=== PATIENT | female | born 1945 | race Caucasian/White ===

== ENCOUNTER 2019-09-13 11:33 | Inpatient (IN) | payer MEDICARE, OTHER ==
[2019-09-13 12:01] LABS: HEMATOCRIT 31.5 % (36.0-47.0); HEMOGLOBIN 10.4 g/dL (12.0-15.5); MEAN CORPUSCULAR HEMOGLOBIN 29.7 pg (27.0-33.4); MEAN CORPUSCULAR VOLUME 90 fl (80-97); PLATELET COUNT 441 10^3/uL (150-450); RED CELL DISTRIBUTION WIDTH 14.5 % (11.5-14.0)
[2019-09-13 12:06] LABS: WHITE BLOOD COUNT 46.5 10^3/uL (4.0-10.5)
[2019-09-13] MEDS ORDERED: ONDANSETRON HCL INJ/PF 4 MG/2 ML SDV IV ONE (12:06)
[2019-09-13] MEDS ORDERED: NORMAL SALINE 1000 ML 1,000 ML IV ONE ×2 (12:06→18:30)
[2019-09-13] MEDS ORDERED: NORMAL SALINE IV ONE (12:14)
[2019-09-13 12:15] LABS: ALBUMIN 2.9 g/dL (3.5-5.0); ALKALINE PHOSPHATASE 110 U/L (38-126); ANION GAP 15 (5-19); ASPARTATE AMINO TRANSFERASE 20 U/L (14-36); BILIRUBIN,DIRECT 0.2 mg/dL (0.0-0.4); BILIRUBIN,TOTAL 0.5 mg/dL (0.2-1.3); BLOOD UREA NITROGEN 22 mg/dL (7-20); CALCIUM 8.4 mg/dL (8.4-10.2); CARBON DIOXIDE 25 mmol/L (22-30); CHLORIDE 97 mmol/L (98-107); GLUCOSE 106 mg/dL (75-110); TOTAL PROTEIN 5.7 g/dL (6.3-8.2)
[2019-09-13 12:17] LABS: ABSOLUTE LYMPHOCYTES# (MANUAL) 0.9 10^3/uL (0.5-4.7); ABSOLUTE MONOCYTES # (MANUAL) 2.8 10^3/uL (0.1-1.4); BAND NEUTROPHILS % (MANUAL) 2 % (3-5); BASOPHILS % (MANUAL) 0 % (0-2); EOSINOPHILS % (MANUAL) 0 % (0-6); LYMPHOCYTES % (MANUAL) 2 % (13-45); MONOCYTES % (MANUAL) 6 % (3-13); SEGMENTED NEUTROPHILS % (MAN) 90 % (42-78); TOTAL CELLS COUNTED 100
[2019-09-13 12:18] LABS: TOXIC GRANULATION SLIGHT
[2019-09-13 12:19] LABS: PLATELET CLUMPS PRESENT; PLATELET COMMENT ADEQUATE; POLYCHROMASIA SLIGHT
[2019-09-13 12:21] LABS: POTASSIUM 2.7 mmol/L (3.6-5.0)
[2019-09-13 12:54] LABS: APPEARANCE,URINE SLIGHTLY-CLOUDY; BILIRUBIN,URINE NEGATIVE (NEGATIVE); COLOR,URINE AMBER; GLUCOSE, URINE NEGATIVE (NEGATIVE); KETONES,URINE NEGATIVE (NEGATIVE); LEUKOCYTE ESTERASE,URINE TRACE (NEGATIVE); NITRITE,URINE POSITIVE (NEGATIVE); PROTEIN,URINE 30 mg/dL (NEGATIVE); UROBILINOGEN,URINE NEGATIVE mg/dL (<2.0)
[2019-09-13 13:18] LABS: VENOUS BLOOD BASE EXCESS 0.4 mmol/L; VENOUS BLOOD HCO3 24.9 mmol/L (20-32); VENOUS BLOOD PCO2 39.6 mmHg (35-63); VENOUS BLOOD PH 7.42 (7.30-7.42)
--- NOTE | 2019-09-13 13:22 | RADIOLOGY REPORT (SQ) ---
"EXAM DESCRIPTION: CT ABD/PELVIS NO ORAL OR IV COMPLETED DATE/TIME: 09/13/2019 12:53 pm REASON FOR STUDY: abd pain/vomiting COMPARISON: None. TECHNIQUE: CT scan of the abdomen and pelvis performed without intravenous or oral contrast. Images reviewed with lung, soft tissue, and bone windows. Reconstructed coronal and sagittal MPR images revi ewed. All images stored on PACS. All CT scanners at this facility use dose modulation, iterative reconstruction, and/or weight based d osing when appropriate to reduce radiation dose to as low as reasonably achievable (ALARA). [facility]: Dose Right [facility]: CareDose [facility]: Dose Right [facility]: Teradose 4D [facility]: [employer] | [employer] RADIATION DOSE: CT Rad equipment meets quality standard of care and radiation dose reduction techniq ues were employed. CTDIvol: 5.6 mGy. DLP: 277 mGy-cm.mGy. LIMITATIONS: None. FINDINGS: LOWER CHEST: No significant findings. Benign calcified nodule of the anterior right middl e lobe, partially imaged. Small pericardial effusion. NON-CONTRASTED LIVER, SPLEEN, ADRENALS: Evaluation limited by lack of IV contrast. No identified sign ificant masses. PANCREAS: No masses. No peripancreatic inflammatory changes. GALLBLADDER: No identified stones by CT criteria. No inflammatory changes to suggest cholecystitis. RIGHT KIDNEY AND URETER: Status post right nephrectomy. . LEFT KIDNEY AND URETER: No suspicious masses. Assessment limited by lack of IV contrast. No signifi cant calcifications. No hydronephrosis or hydroureter. AORTA AND RETROPERITONEUM: No aneurysm. No retroperitoneal masses or adenopathy. Calcific atheroscle rosis. BOWEL AND PERITONEAL CAVITY: There is thickening of the cecum and proximal transverse colon (series 6 01, image 28, series 3, image 35) APPENDIX: Normal. PELVIS, BLADDER, AND ABDOMINAL WALL:No abnormal masses. No free fluid. Bladder normal. BONES: Status post right hip total arthroplasty. OTHER: No other significant finding. IMPRESSION: 1. There is thickening of the cecum and proximal transverse colon (series 601, image 28, series 3, image 35), consistent with nonspecific infectious, inflammatory, or ischemic colitis. 2. Status post right nephrectomy. COMMENT: Quality ID # [id number]: Final reports with documentation of one or more dose reduction techniques (e.g., Automated exposure control, adjustment of the mA and/or kV according to patient size, use of iterative reconstruction technique) TECHNICAL DOCUMENTATION: JOB ID: [id number] [employer]- All Rights Reserved Reading location - IP/workstation name: [email or web address]"
[2019-09-13] MEDS ORDERED: VANCOMYCIN HCL INJ 500 MG VIAL PO ONE (13:35)
--- NOTE | 2019-09-13 13:50 | ER Document Report ---
ED General - General Chief Complaint: Nausea/Vomiting Stated Complaint: NAUSEA Time Seen by Provider: 09/13/19 11:57 Mode of Arrival: Ambulatory Information source: Patient TRAVEL OUTSIDE OF THE [place] IN LAST 30 DAYS: No - HPI Notes: Patient presents with vomiting and diarrhea x4 to 5 days. Patient states that approximately 1 month ago she had a hip replacement done at an outside hospital. Since that time she has been in rehab until 3 days ago. She states that since she has been discharged from the rehab facility she has had vomiting and diarrhea. No blood in the vomit or diarrhea. Nothing seems to make the symptoms better or worse. No radiation of symptoms. Symptoms have been intermittent and moderate to severe. She is also had abdominal cramping that is been diffuse. No fevers or rashes. She states that she still does have some hip pain especially if she bears weight. - Related Data Allergies/Adverse Reactions: calcium [From DHEA] Allergy (Verified 09/13/19 11:58) rash/itching calcium carbonate [From DHEA] Allergy (Verified 09/13/19 11:58) rash/itching ketorolac [From Toradol] Allergy (Verified 09/13/19 12:01) rash/itching/sob/wheezing prasterone (DHEA) [From DHEA] Allergy (Verified 09/13/19 11:58) rash/itching sumatriptan [From Imitrex] Allergy (Verified 09/13/19 11:58) Chest pain hydroxyzine [From Vistaril] Adverse Reaction (Verified 09/13/19 12:01) nervous oxytocin Adverse Reaction (Verified 09/13/19 11:58) psychological reaction prednisone Adverse Reaction (Verified 09/13/19 12:01) psychological reaction prochlorperazine [From Compazine] Adverse Reaction (Verified 09/13/19 11:58) nervous Home Medications: see list Past Medical History - General Information source: Patient, Relative - Social History Smoking Status: Never Smoker Frequency of alcohol use: None Drug Abuse: None Family History: Reviewed & Not Pertinent Patient has suicidal ideation: No Patient has homicidal ideation: No - Past Medical History Cardiac Medical History: Reports: Hx Hypertension Neurological Medical History: Reports: Hx Migraine GI Medical History: Reports: Hx Gastroesophageal Reflux Disease Past Surgical History: Reports: Hx Cholecystectomy, Hx Hysterectomy - partial, Hx Kidney (Renal Surgery) - R kidney removal 07/2017, Hx Orthopedic Surgery - R hip replacement 08/15/19 Review of Systems - Review of Systems Constitutional: Malaise, Weakness Cardiovascular: denies: Chest pain, Palpitations Respiratory: denies: Cough, Short of breath Gastrointestinal: Abdominal pain, Diarrhea, Vomiting -: Yes All other systems reviewed and negative Physical Exam - Vital signs Vitals: Temp Resp Pulse Ox 98.1 F 17 95 09/13/19 11:35 09/13/19 11:35 09/13/19 11:35 Interpretation: Normal - General General appearance: Alert In distress: None - HEENT Head: Normocephalic, Atraumatic Eyes: Normal Pupils: PERRL - Respiratory Respiratory status: No respiratory distress Chest status: Nontender Breath sounds: Normal Chest palpation: Normal - Cardiovascular Rhythm: Regular Heart sounds: Normal auscultation Murmur: No - Abdominal Inspection: Normal Distension: No distension Bowel sounds: Hyperactive Tenderness: Tender - Mild diffuse tenderness to palpation Organomegaly: No organomegaly - Back Back: Normal, Nontender - Extremities General upper extremity: Normal inspection, Nontender, Normal color, Normal ROM, Normal temperature General lower extremity: Nontender, Normal color, Normal temperature, Other - The wound site of the right hip surgery appears unremarkable. The wound appears to be healing normally. There is no induration or erythema. There is no discharge or tenderness to palpation of the site.. No: Chris's sign - Neurological Neuro grossly intact: Yes Cognition: Normal Orientation: AAOx4 [place] Coma Scale Eye Opening: Spontaneous [place] Coma Scale Verbal: Oriented [place] Coma Scale Motor: Obeys Commands [place]ish Coma Scale Total: 15 Speech: Normal Motor strength normal: LUE, RUE, LLE, RLE Sensory: Normal - Psychological Associated symptoms: Normal affect, Normal mood - Skin Skin Temperature: Warm Skin Moisture: Dry Skin Color: Normal Course - Re-evaluation Re-evalutation: 09/13/19 13:49 Patient presents with abdominal pain vomiting diarrhea. She has a white count of 42,000. She was recently hospitalized. CT scan shows colitis. C. difficile at this time is pending but the work-up seems very consistent with C. difficile infection. She also appears dehydrated and hypokalemic. Her potassium will be replaced. She will be given IV fluids. She will be given oral vancomycin. - Vital Signs Vital signs: Temp Pulse Resp BP Pulse Ox 98.1 F 13 92/53 L 99 09/13/19 11:45 09/13/19 13:01 09/13/19 13:01 09/13/19 13:01 - Laboratory Result Diagrams: 09/13/19 11:40 09/13/19 11:40 Laboratory results interpreted by me: 09/13/19 09/13/19 09/13/19 11:40 11:40 12:32 WBC 46.5 H* RBC 3.50 L Hgb 10.4 L Hct 31.5 L RDW 14.5 H Seg Neuts % (Manual) 90 H Band Neutrophils % 2 L Lymphocytes % (Manual) 2 L Abs Neuts (Manual) 42.8 H Abs Monocytes (Manual) 2.8 H Sodium 136.5 L Potassium 2.7 L* Chloride 97 L BUN 22 H Est GFR ( Amer) 59 L Est GFR (MDRD) Non-Af 49 L Total Protein 5.7 L Albumin 2.9 L Lipase < 10.0 L Urine Protein 30 H Urine Blood SMALL H Urine Nitrite POSITIVE H Ur Leukocyte Esterase TRACE H - Diagnostic Test Radiology reviewed: Image reviewed, Reports reviewed - EKG Interpretation by Me EKG shows normal: Sinus rhythm Rate: Normal - 79 Rhythm: NSR [place]/QRS: Left axis deviation Discharge - Discharge Clinical Impression: C. difficile colitis, Hypokalemia, Dehydration Condition: Serious Disposition: ADMITTED INPATIENT Admitting Provider: Samra (Hospitalist) - [facility] Unit Admitted: [facility]
[2019-09-13] MEDS ORDERED: ONDANSETRON HCL INJ/PF 4 MG/2 ML SDV IV PRN (14:01)
[2019-09-13] MEDS: POTASSI CL 20 MEQ/50 ML RIDER 20 MEQ/50 ML RTUPB IV SCH ×3 (14:09→19:08)
[2019-09-13] MEDS ORDERED: METRONIDAZOLE 500 MG TABLET PO SCH (14:15)
--- NOTE | 2019-09-13 14:19 | PDOC H&P ---
History of Present Illness Admission Date/PCP: 09/13/2019 [place]-town primary care Patient complains of: Nausea vomiting abdominal pain diarrhea History of Present Illness: ALEXANDRIA DOWELL is a 74 year old female who approximately a month ago had a hip replacement. Patient was released from rehab last week and about 3 days ago developed severe nausea vomiting and diarrhea. Patient states no blood in the vomit or diarrhea nothing has made the symptoms better or worse and there is no other symptomology. CAT scan showed colitis she has a white count of 46,000. We are awaiting C. difficile toxin. Patient continues have right hip pain with weightbearing. No treatment prior arrival no aggravating factors Past Medical History Cardiac Medical History: Reports: Hypertension Neurological Medical History: Reports: Migraine GI Medical History: Reports: Gastroesophageal Reflux Disease Past Surgical History Past Surgical History: Reports: Cholecystectomy, Hysterectomy - partial, Orthopedic Surgery - R hip replacement 08/15/19 Social History Information Source: Patient Lives with: Family Smoking Status: Never Smoker Electronic Cigarette use?: No Frequency of Alcohol Use: None Hx Recreational Drug Use: No Drugs: None Hx Prescription Drug Abuse: No - Advance Directive Resuscitation Status: Full Code Family History Family History: CAD, Malignancy Parental Family History Reviewed: Yes Children Family History Reviewed: Yes Sibling(s) Family History Reviewed.: Yes Medication/Allergy Allergies/Adverse Reactions: calcium [From DHEA] Allergy (Verified 09/13/19 11:58) rash/itching calcium carbonate [From DHEA] Allergy (Verified 09/13/19 11:58) rash/itching ketorolac [From Toradol] Allergy (Verified 09/13/19 12:01) rash/itching/sob/wheezing prasterone (DHEA) [From DHEA] Allergy (Verified 09/13/19 11:58) rash/itching sumatriptan [From Imitrex] Allergy (Verified 09/13/19 11:58) Chest pain hydroxyzine [From Vistaril] Adverse Reaction (Verified 09/13/19 12:01) nervous oxytocin Adverse Reaction (Verified 09/13/19 11:58) psychological reaction prednisone Adverse Reaction (Verified 09/13/19 12:01) psychological reaction prochlorperazine [From Compazine] Adverse Reaction (Verified 09/13/19 11:58) nervous Review of Systems Constitutional: ABSENT: chills, fever(s), headache(s), weight gain, weight loss Eyes: ABSENT: visual disturbances Ears: ABSENT: hearing changes Cardiovascular: ABSENT: chest pain, dyspnea on exertion, edema, orthropnea, palpitations Respiratory: ABSENT: cough, hemoptysis Gastrointestinal: PRESENT: abdominal pain, diarrhea, nausea, vomiting. ABSENT: constipation, hematemesis, hematochezia Genitourinary: ABSENT: dysuria, hematuria Musculoskeletal: ABSENT: joint swelling Integumentary: ABSENT: rash, wounds Neurological: ABSENT: abnormal gait, abnormal speech, confusion, dizziness, focal weakness, syncope Psychiatric: ABSENT: anxiety, depression, homidical ideation, suicidal ideation Endocrine: ABSENT: cold intolerance, heat intolerance, polydipsia, polyuria Hematologic/Lymphatic: ABSENT: easy bleeding, easy bruising Physical Exam Vital Signs: Temp Pulse Resp BP Pulse Ox 98.1 F 13 92/53 L 99 09/13/19 11:45 09/13/19 13:01 09/13/19 13:01 09/13/19 13:01 Intake & Output 09/12/19 09/13/19 09/14/19 06:59 06:59 06:59 Intake Total 500 Balance 500 Weight 60.3 kg General appearance: PRESENT: no acute distress, well-developed, well-nourished Head exam: PRESENT: atraumatic, normocephalic Eye exam: PRESENT: conjunctiva pink, EOMI, PERRLA. ABSENT: scleral icterus Ear exam: PRESENT: normal external ear exam Mouth exam: PRESENT: moist, tongue midline Neck exam: ABSENT: carotid bruit, JVD, lymphadenopathy, thyromegaly Respiratory exam: PRESENT: clear to auscultation parul. ABSENT: rales, rhonchi, wheezes Cardiovascular exam: PRESENT: RRR. ABSENT: diastolic murmur, rubs, systolic murmur Pulses: PRESENT: normal dorsalis pedis pul Vascular exam: PRESENT: normal capillary refill GI/Abdominal exam: PRESENT: hyperactive bowel sounds, soft, tenderness. ABSENT: distended, guarding, mass, organolmegaly, rebound Rectal exam: PRESENT: deferred Extremities exam: PRESENT: full ROM. ABSENT: calf tenderness, clubbing, pedal edema Musculoskeletal exam: PRESENT: other - Surgical scar right hip Neurological exam: PRESENT: alert, awake, oriented to person, oriented to place, oriented to time, oriented to situation, CN II-XII grossly intact. ABSENT: motor sensory deficit Psychiatric exam: PRESENT: appropriate affect, normal mood. ABSENT: homicidal ideation, suicidal ideation Skin exam: PRESENT: dry, intact, warm. ABSENT: cyanosis, rash Results Laboratory Results: 09/13/19 11:40 09/13/19 11:40 09/13/19 09/13/19 09/13/19 11:40 11:40 12:32 WBC 46.5 H* RBC 3.50 L Hgb 10.4 L Hct 31.5 L MCV 90 MCH 29.7 MCHC 33.0 RDW 14.5 H Plt Count 441 Seg Neutrophils % Not Reportable VBG pH VBG pCO2 VBG HCO3 VBG Base Excess Sodium 136.5 L Potassium 2.7 L* Chloride 97 L Carbon Dioxide 25 Anion Gap 15 BUN 22 H Creatinine 1.09 Est GFR ( Amer) 59 L Glucose 106 Calcium 8.4 Total Bilirubin 0.5 AST 20 Alkaline Phosphatase 110 Total Protein 5.7 L Albumin 2.9 L Lipase < 10.0 L Urine Color CARLOS Urine Appearance SLIGHTLY-CLOUDY Urine pH 5.0 Ur Specific [place] 1.020 Urine Protein 30 H Urine Glucose (UA) NEGATIVE Urine Ketones NEGATIVE Urine Blood SMALL H Urine Nitrite POSITIVE H Ur Leukocyte Esterase TRACE H Urine WBC (Auto) 5 Urine RBC (Auto) 1 09/13/19 13:08 WBC RBC Hgb Hct MCV MCH MCHC RDW Plt Count Seg Neutrophils % VBG pH 7.42 VBG pCO2 39.6 VBG HCO3 24.9 VBG Base Excess 0.4 Sodium Potassium Chloride Carbon Dioxide Anion Gap BUN Creatinine Est GFR ( Amer) Glucose Calcium Total Bilirubin AST Alkaline Phosphatase Total Protein Albumin Lipase Urine Color Urine Appearance Urine pH Ur Specific [place] Urine Protein Urine Glucose (UA) Urine Ketones Urine Blood Urine Nitrite Ur Leukocyte Esterase Urine WBC (Auto) Urine RBC (Auto) 09/13/19 11:40 Troponin I < 0.012 Impressions: Abdomen/Pelvis CT 09/13/19 12:05 IMPRESSION: 1. There is thickening of the cecum and proximal transverse colon (series 601, image 28, series 3, image 35), consistent with nonspecific infectious, inflammatory, or ischemic colitis. 2. Status post right nephrectomy. Assessment and Plan - Diagnosis (1) C. difficile colitis Is this a current diagnosis for this admission?: Yes Plan: 09/13/2019-await C. difficile toxin. Will place patient on Flagyl 500 mg every 6 hours and vancomycin 500 mg p.o. every 6 hours. Will treat pain with Dilaudid 0.5 mg IV every 3 hours. Will give patient a clear liquid diet. Will follow make change plan of care as appropriate (2) Hypokalemia Is this a current diagnosis for this admission?: Yes Plan: 09/13/2019-patient receiving potassium riders total 60 mEq IV will repeat BMP in a.m. (3) Dehydration Is this a current diagnosis for this admission?: Yes Plan: 09/13/2019-normal saline x2 L in the ER. Will continue normal saline 125 mL an hour. Repeat BMP in a.m. (4) Pain Is this a current diagnosis for this admission?: Yes Plan: 09/13/2019-Dilaudid 0.5 mill grams IV every 3 hours PRN (5) Nausea & vomiting Is this a current diagnosis for this admission?: Yes Plan: 09/13/2019-alternating Zofran and Phenergan IV. - Time Time Spent with patient: 35 or more minutes - Inpatient Certification Based on my medical assessment, after consideration of the patient's comorbidities, presenting symptoms, or acuity I expect that the services needed warrant INPATIENT care.: Yes I certify that my determination is in accordance with my understanding of Medicare's requirements for reasonable and necessary INPATIENT services [42 CFR 412.3e].: Yes Medical Necessity: Need For IV Fluids, Need for Pain Control, Need for IV Anti biotics
[2019-09-13] MEDS ORDERED: VANCOMYCIN HCL INJ 500 MG VIAL PO SCH (15:30)
[2019-09-13] MEDS: NORMAL SALINE 1000 ML 1,000 ML IV PRN (15:39)
[2019-09-13] MEDS: HYDROMORPHONE HCL INJ/PF 2 MG/ML AMPULE IV PRN (16:09)
[2019-09-13] MEDS: PROMETHAZINE HCL INJ 25 MG/1 ML VIAL IV PRN ×2 (16:11→21:16)
[2019-09-13] MEDS: CEFTRIAXONE 1 GM/D5W RTU 1 GM/50 ML RTUPB IV SCH (16:45)
--- NOTE | 2019-09-13 17:48 | EKG REPORT ---
SEVERITY:- ABNORMAL ECG - SINUS RHYTHM LEFT VENTRICULAR HYPERTROPHY BORDERLINE T ABNORMALITIES, INFERIOR LEADS : Confirmed by: Sunny Russell MD 13-Sep-2019 17:48:12
[2019-09-13] MEDS: METRONIDAZOLE 500 MG/NS RTU 500 MG/100 ML RTUPB IV SCH (18:15)
[2019-09-13] MEDS: VANCOMYCIN HCL INJ 500 MG VIAL PO SCH (18:15)
[2019-09-13] MEDS: HEPARIN SOD (PORCINE) 5,000 UNIT/ML 1 ML VIAL SUBCUT SCH (22:07)
[2019-09-13 22:30] LABS: ANION GAP 14 (5-19); BLOOD UREA NITROGEN 18 mg/dL (7-20); CALCIUM 7.5 mg/dL (8.4-10.2); CARBON DIOXIDE 19 mmol/L (22-30); CHLORIDE 107 mmol/L (98-107); GLUCOSE 86 mg/dL (75-110); POTASSIUM 3.1 mmol/L (3.6-5.0)
[2019-09-13] MEDS ORDERED: ACETAMINOPHEN 325 MG TABLET PO PRN (23:37)
[2019-09-13] MEDS ORDERED: METOCLOPRAMIDE HCL INJ/PF 10 MG/2 ML SDV IV ONE (23:45)
[2019-09-14] MEDS: ACETAMINOPHEN 1,000 MG/100 ML RTUPB IV PRN ×3 (00:01→23:55)
[2019-09-14] MEDS: METRONIDAZOLE 500 MG/NS RTU 500 MG/100 ML RTUPB IV SCH ×5 (00:02→23:17)
[2019-09-14] MEDS: ONDANSETRON HCL INJ/PF 4 MG/2 ML SDV IV PRN ×2 (00:02→13:11)
[2019-09-14] MEDS: VANCOMYCIN HCL INJ 500 MG VIAL PO SCH ×5 (00:02→23:15)
[2019-09-14] MEDS: NORMAL SALINE 1000 ML 1,000 ML IV PRN ×3 (00:03→17:27)
[2019-09-14] MEDS: HEPARIN SOD (PORCINE) 5,000 UNIT/ML 1 ML VIAL SUBCUT SCH ×3 (06:08→23:15)
[2019-09-14] MEDS: PROMETHAZINE HCL INJ 25 MG/1 ML VIAL IV PRN ×3 (06:12→23:15)
[2019-09-14] MEDS: METOCLOPRAMIDE HCL INJ/PF 10 MG/2 ML SDV IV SCH ×3 (06:12→23:15)
[2019-09-14 06:30] LABS: HEMATOCRIT 25.9 % (36.0-47.0); HEMOGLOBIN 8.7 g/dL (12.0-15.5); MEAN CORPUSCULAR HEMOGLOBIN 30.1 pg (27.0-33.4); MEAN CORPUSCULAR HGB CONC 33.6 g/dL (32.0-36.0); MEAN CORPUSCULAR VOLUME 89 fl (80-97); PLATELET COUNT 392 10^3/uL (150-450); RED CELL DISTRIBUTION WIDTH 14.6 % (11.5-14.0)
[2019-09-14 06:52] LABS: WHITE BLOOD COUNT 31.4 10^3/uL (4.0-10.5)
[2019-09-14 07:32] LABS: C DIFFICILE GDH NEGATIVE (NEGATIVE)
--- NOTE | 2019-09-14 08:47 | PDOC PROGRESS REPORT ---
Subjective Progress Note for:: 09/14/19 Subjective:: 09/14/2019-no complaints Reason For Visit: C. DIFFICILE COLITIS,UTI,HYPOKALEMIA Physical Exam Vital Signs: Temp Pulse Resp BP Pulse Ox 98.3 F 74 20 91/43 L 95 09/14/19 03:47 09/14/19 07:00 09/14/19 03:47 09/14/19 03:47 09/14/19 03:47 Intake & Output 09/13/19 09/14/19 09/15/19 06:59 06:59 06:59 Intake Total 4000 Balance 4000 Weight 57.7 kg General appearance: PRESENT: no acute distress, well-developed, well-nourished Head exam: PRESENT: atraumatic, normocephalic Eye exam: PRESENT: conjunctiva pink, EOMI, PERRLA. ABSENT: scleral icterus Ear exam: PRESENT: normal external ear exam Mouth exam: PRESENT: moist, tongue midline Neck exam: ABSENT: carotid bruit, JVD, lymphadenopathy, thyromegaly Respiratory exam: PRESENT: clear to auscultation parul. ABSENT: rales, rhonchi, wheezes Cardiovascular exam: PRESENT: RRR. ABSENT: diastolic murmur, rubs, systolic murmur Pulses: PRESENT: +1 pedal pulses bilateral Vascular exam: PRESENT: normal capillary refill GI/Abdominal exam: PRESENT: hyperactive bowel sounds, soft, tenderness. ABSENT: distended, guarding, mass, organolmegaly, rebound Rectal exam: PRESENT: deferred Extremities exam: PRESENT: full ROM. ABSENT: calf tenderness, clubbing, pedal edema Neurological exam: PRESENT: alert, awake, oriented to person, oriented to place, oriented to time, oriented to situation, CN II-XII grossly intact. ABSENT: motor sensory deficit Psychiatric exam: PRESENT: appropriate affect, normal mood. ABSENT: homicidal ideation, suicidal ideation Skin exam: PRESENT: dry, intact, warm. ABSENT: cyanosis, rash Results Laboratory Results: 09/14/19 05:45 09/13/19 22:03 09/13/19 09/13/19 09/13/19 11:40 11:40 12:32 WBC 46.5 H* RBC 3.50 L Hgb 10.4 L Hct 31.5 L MCV 90 MCH 29.7 MCHC 33.0 RDW 14.5 H Plt Count 441 Seg Neutrophils % Not Reportable VBG pH VBG pCO2 VBG HCO3 VBG Base Excess Sodium 136.5 L Potassium 2.7 L* Chloride 97 L Carbon Dioxide 25 Anion Gap 15 BUN 22 H Creatinine 1.09 Est GFR ( Amer) 59 L Glucose 106 Calcium 8.4 Magnesium Total Bilirubin 0.5 AST 20 Alkaline Phosphatase 110 Total Protein 5.7 L Albumin 2.9 L Lipase < 10.0 L Urine Color CARLOS Urine Appearance SLIGHTLY-CLOUDY Urine pH 5.0 Ur Specific [place] 1.020 Urine Protein 30 H Urine Glucose (UA) NEGATIVE Urine Ketones NEGATIVE Urine Blood SMALL H Urine Nitrite POSITIVE H Ur Leukocyte Esterase TRACE H Urine WBC (Auto) 5 Urine RBC (Auto) 1 Stl C.difficile Tox PCR 09/13/19 09/13/19 09/13/19 13:08 19:55 22:03 WBC RBC Hgb Hct MCV MCH MCHC RDW Plt Count Seg Neutrophils % VBG pH 7.42 VBG pCO2 39.6 VBG HCO3 24.9 VBG Base Excess 0.4 Sodium 139.7 Potassium 3.1 L Chloride 107 Carbon Dioxide 19 L Anion Gap 14 BUN 18 Creatinine 0.95 Est GFR ( Amer) > 60 Glucose 86 Calcium 7.5 L Magnesium Total Bilirubin AST Alkaline Phosphatase Total Protein Albumin Lipase Urine Color Urine Appearance Urine pH Ur Specific [place] Urine Protein Urine Glucose (UA) Urine Ketones Urine Blood Urine Nitrite Ur Leukocyte Esterase Urine WBC (Auto) Urine RBC (Auto) Stl C.difficile Tox PCR POSITIVE 09/13/19 09/14/19 22:03 05:45 WBC 31.4 H* RBC 2.90 L Hgb 8.7 L Hct 25.9 L MCV 89 MCH 30.1 MCHC 33.6 RDW 14.6 H Plt Count 392 Seg Neutrophils % VBG pH VBG pCO2 VBG HCO3 VBG Base Excess Sodium Potassium Chloride Carbon Dioxide Anion Gap BUN Creatinine Est GFR ( Amer) Glucose Calcium Magnesium 1.4 L Total Bilirubin AST Alkaline Phosphatase Total Protein Albumin Lipase Urine Color Urine Appearance Urine pH Ur Specific [place] Urine Protein Urine Glucose (UA) Urine Ketones Urine Blood Urine Nitrite Ur Leukocyte Esterase Urine WBC (Auto) Urine RBC (Auto) Stl C.difficile Tox PCR 09/13/19 11:40 Troponin I < 0.012 Impressions: Abdomen/Pelvis CT 09/13/19 12:05 IMPRESSION: 1. There is thickening of the cecum and proximal transverse colon (series 601, image 28, series 3, image 35), consistent with nonspecific infectious, inflammatory, or ischemic colitis. 2. Status post right nephrectomy. Assessment and Plan - Diagnosis (1) C. difficile colitis Is this a current diagnosis for this admission?: Yes Plan: 09/13/2019-await C. difficile toxin. Will place patient on Flagyl 500 mg every 6 hours and vancomycin 500 mg p.o. every 6 hours. Will treat pain with Dilaudid 0.5 mg IV every 3 hours. Will give patient a clear liquid diet. Will follow make change plan of care as appropriate 09/14/2019-C. difficile toxin positive. Patient continued on Flagyl 500 mg IV every 6 hours and vancomycin 500 mg p.o. every 6 hours. Patient showing improvement at this time white count down to 31,000. We will continue current therapy. (2) Hypokalemia Is this a current diagnosis for this admission?: Yes Plan: 09/13/2019-patient receiving potassium riders total 60 mEq IV will repeat BMP in a.m. 09/14/2019-potassium 3.1 this morning. We will give potassium chloride riders times 4 repeat BMP in a.m. (3) Dehydration Is this a current diagnosis for this admission?: Yes Plan: 09/13/2019-normal saline x2 L in the ER. Will continue normal saline 125 mL an hour. Repeat BMP in a.m. 09/14/2019-continue hydration as patient is not taking oral at this time very well. (4) Pain Is this a current diagnosis for this admission?: Yes Plan: 09/13/2019-Dilaudid 0.5 mill grams IV every 3 hours PRN [id number] continue current therapy (5) Nausea & vomiting Is this a current diagnosis for this admission?: Yes Plan: 09/13/2019-alternating Zofran and Phenergan IV. 09/14/2019-improved continue as needed Zofran and Phenergan (6) Hypomagnesemia Is this a current diagnosis for this admission?: Yes Plan: 09/14/2019-magnesium 1.4. Give 2 g IV mag at this time repeat magnesium level in a.m. - Time Time Spent with patient: 15-24 minutes - Inpatient Certification Based on my medical assessment, after consideration of the patient's bryan rbidities, presenting symptoms, or acuity I expect that the services needed warrant INPATIENT care.: Yes I certify that my determination is in accordance with my understanding of Medicare's requirements for reasonable and necessary INPATIENT services [42 CFR 412.3e].: Yes Medical Necessity: Need For IV Fluids, Need for Pain Control, Need for IV Antibiotics
[2019-09-14] MEDS: MAGNESIUM SULFATE/D5W 1 GM/100 ML RTUPB IV SCH ×2 (09:03→10:32)
[2019-09-14] MEDS: POTASSI CL 20 MEQ/50 ML RIDER 20 MEQ/50 ML RTUPB IV SCH ×2 (09:15→11:37)
[2019-09-14] MEDS: VENLAFAXINE HCL 75 MG CAP.SR.24H PO SCH (11:29)
[2019-09-14] MEDS: CEFTRIAXONE 1 GM/D5W RTU 1 GM/50 ML RTUPB IV SCH (11:30)
[2019-09-14 13:18] LABS: PATH REVIEW PATHOLOGIST REVIEWED
[2019-09-14 15:50] LABS: ANION GAP 12 (5-19); BLOOD UREA NITROGEN 13 mg/dL (7-20); CALCIUM 7.6 mg/dL (8.4-10.2); CARBON DIOXIDE 18 mmol/L (22-30); CHLORIDE 109 mmol/L (98-107); GLUCOSE 97 mg/dL (75-110); POTASSIUM 3.1 mmol/L (3.6-5.0)
[2019-09-14] MEDS: ATORVASTATIN CALCIUM 40 MG TABLET PO SCH (23:14)
[2019-09-15] MEDS: NORMAL SALINE 1000 ML 1,000 ML IV PRN ×2 (05:15→18:11)
[2019-09-15] MEDS: VANCOMYCIN HCL INJ 500 MG VIAL PO SCH ×4 (05:15→23:27)
[2019-09-15] MEDS: METOCLOPRAMIDE HCL INJ/PF 10 MG/2 ML SDV IV SCH ×3 (05:15→22:41)
[2019-09-15] MEDS: LEVOTHYROXINE SODIUM 0.05 MG TABLET PO SCH (05:15)
[2019-09-15] MEDS: HEPARIN SOD (PORCINE) 5,000 UNIT/ML 1 ML VIAL SUBCUT SCH ×3 (05:16→22:40)
[2019-09-15] MEDS: METRONIDAZOLE 500 MG/NS RTU 500 MG/100 ML RTUPB IV SCH ×4 (05:16→23:27)
[2019-09-15 06:06] LABS: HEMATOCRIT 23.5 % (36.0-47.0); MEAN CORPUSCULAR HEMOGLOBIN 29.4 pg (27.0-33.4); MEAN CORPUSCULAR HGB CONC 33.2 g/dL (32.0-36.0); MEAN CORPUSCULAR VOLUME 89 fl (80-97); PLATELET COUNT 382 10^3/uL (150-450); RED BLOOD COUNT 2.65 10^6/uL (3.72-5.28); RED CELL DISTRIBUTION WIDTH 14.7 % (11.5-14.0); WHITE BLOOD COUNT 18.7 10^3/uL (4.0-10.5)
[2019-09-15 06:07] LABS: HEMOGLOBIN 7.8 g/dL (12.0-15.5)
[2019-09-15] MEDS: PROMETHAZINE HCL INJ 25 MG/1 ML VIAL IV PRN ×3 (06:55→20:22)
[2019-09-15 08:46] LABS: ANION GAP 7 (5-19); BLOOD UREA NITROGEN 9 mg/dL (7-20); CALCIUM 7.6 mg/dL (8.4-10.2); CARBON DIOXIDE 18 mmol/L (22-30); CHLORIDE 118 mmol/L (98-107); GLUCOSE 88 mg/dL (75-110)
[2019-09-15 08:59] LABS: POTASSIUM 2.9 mmol/L (3.6-5.0)
[2019-09-15] MEDS ORDERED: VANCOMYCIN HCL 0 MG in DEXTROSE 5%-WATER 250 ML IV NR (09:00)
--- NOTE | 2019-09-15 09:00 | PDOC PROGRESS REPORT ---
Subjective Progress Note for:: 09/15/19 Subjective:: 09/14/2019-no complaints 09/15/2019-no complaints this a.m. Reason For Visit: C. DIFFICILE COLITIS,UTI,HYPOKALEMIA Physical Exam Vital Signs: Temp Pulse Resp BP Pulse Ox 98.0 F 84 20 99/43 L 98 09/15/19 03:06 09/15/19 07:00 09/15/19 03:06 09/15/19 03:06 09/15/19 03:06 Intake & Output 09/14/19 09/15/19 09/16/19 06:59 06:59 06:59 Intake Total 4000 4780 Balance 4000 4780 Weight 57.7 kg 58.5 kg General appearance: PRESENT: no acute distress, well-developed, well-nourished Neck exam: ABSENT: carotid bruit, JVD, lymphadenopathy, thyromegaly Respiratory exam: PRESENT: clear to auscultation parul. ABSENT: rales, rhonchi, wheezes Cardiovascular exam: PRESENT: RRR. ABSENT: diastolic murmur, rubs, systolic murmur Pulses: PRESENT: +1 pedal pulses bilateral Vascular exam: PRESENT: normal capillary refill GI/Abdominal exam: PRESENT: hyperactive bowel sounds, soft. ABSENT: distended, guarding, mass, organolmegaly, rebound, tenderness Extremities exam: PRESENT: full ROM. ABSENT: calf tenderness, clubbing, pedal edema Neurological exam: PRESENT: alert, awake, oriented to person, oriented to place, oriented to time, oriented to situation, CN II-XII grossly intact. ABSENT: motor sensory deficit Psychiatric exam: PRESENT: appropriate affect, normal mood. ABSENT: homicidal ideation, suicidal ideation Skin exam: PRESENT: dry, intact, warm. ABSENT: cyanosis, rash Results Laboratory Results: 09/15/19 05:44 09/14/19 09/15/19 09/15/19 14:59 05:44 05:44 WBC 18.7 H RBC 2.65 L Hgb 7.8 L Hct 23.5 L MCV 89 MCH 29.4 MCHC 33.2 RDW 14.7 H Plt Count 382 Sodium 139.1 Potassium 3.1 L Chloride 109 H Carbon Dioxide 18 L Anion Gap 12 BUN 13 Creatinine 0.93 Est GFR ( Amer) > 60 Glucose 97 Calcium 7.6 L Magnesium 1.9 09/13/19 11:40 Troponin I < 0.012 Impressions: Abdomen/Pelvis CT 09/13/19 12:05 IMPRESSION: 1. There is thickening of the cecum and proximal transverse colon (series 601, image 28, series 3, image 35), consistent with nonspecific infectious, inflammatory, or ischemic colitis. 2. Status post right nephrectomy. Assessment and Plan - Diagnosis (1) C. difficile colitis Is this a current diagnosis for this admission?: Yes Plan: 09/13/2019-await C. difficile toxin. Will place patient on Flagyl 500 mg every 6 hours and vancomycin 500 mg p.o. every 6 hours. Will treat pain with Dilaudid 0.5 mg IV every 3 hours. Will give patient a clear liquid diet. Will follow make change plan of care as appropriate 09/14/2019-C. difficile toxin positive. Patient continued on Flagyl 500 mg IV every 6 hours and vancomycin 500 mg p.o. every 6 hours. Patient showing improvement at this time white count down to 31,000. We will continue current t herapy. 09/15/2019-improved. Patient's white count down to 18,000. Diarrhea is slowing. Flagyl 500 mg IV every 6 and vancomycin 500 mg p.o. every 6 continues. (2) Hypokalemia Is this a current diagnosis for this admission?: Yes Plan: 09/13/2019-patient receiving potassium riders total 60 mEq IV will repeat BMP in a.m. 09/14/2019-potassium 3.1 this morning. We will give potassium chloride riders times 4 repeat BMP in a.m. 09/15/2019-awaiting a.m. labs (3) Dehydration Is this a current diagnosis for this admission?: Yes Plan: 09/13/2019-normal saline x2 L in the ER. Will continue normal saline 125 mL an hour. Repeat BMP in a.m. 09/14/2019-continue hydration as patient is not taking oral at this time very well. 09/15/2019-I have decreased IV fluids to 50 mL/h and will continue clear liquid diet. (4) Pain Is this a current diagnosis for this admission?: Yes Plan: 09/13/2019-Dilaudid 0.5 mill grams IV every 3 hours PRN 09/14/[id number] continue current therapy 09/15/[id number]. Continue Dilaudid. (5) Nausea & vomiting Is this a current diagnosis for this admission?: Yes Plan: 09/13/2019-alternating Zofran and Phenergan IV. 09/14/2019-improved continue as needed Zofran and Phenergan 09/15/2019-improved. Continue Zofran and Phenergan as needed (6) Hypomagnesemia Is this a current diagnosis for this admission?: Yes Plan: 09/14/2019-magnesium 1.4. Give 2 g IV mag at this time repeat magnesium level in a.m. 09/15/2019-resolved. Stable follow (7) Gram positive septicemia Is this a current diagnosis for this admission?: Yes Plan: 09/15/2019-I have added vancomycin per pharmacy dosing to patient's regimen. Await cultures - Time Time Spent with patient: 15-24 minutes - Inpatient Certification Based on my medical assessment, after consideration of the patient's c omorbidities, presenting symptoms, or acuity I expect that the services needed warrant INPATIENT care.: Yes I certify that my determination is in accordance with my understanding of Medicare's requirements for reasonable and necessary INPATIENT services [42 CFR 412.3e].: Yes Medical Necessity: Significant Comorbidiites Make Outpatient Treatment Too Risky, Need Close Monitoring Due to Risk of Patient Decompensation, Need for Pain Control, Need for IV Antibiotics
[2019-09-15] MEDS: VENLAFAXINE HCL 75 MG CAP.SR.24H PO SCH (09:42)
[2019-09-15] MEDS: CEFTRIAXONE 1 GM/D5W RTU 1 GM/50 ML RTUPB IV SCH (09:42)
[2019-09-15] MEDS: VANCOMYCIN HCL 1,000 MG in DEXTROSE 5%-WATER 250 ML IV SCH (11:31)
--- NOTE | 2019-09-15 14:58 | RADIOLOGY REPORT (SQ) ---
EXAM DESCRIPTION: PICC INSERTION; U/S GUIDE FOR VASCULAR ACCESS; FLUORO/CV PLACEMENT COMPLETED DATE/TIME: 09/15/2019 1:55 pm REASON FOR STUDY: IV access; IV ACCESS COMPARISON: None. FLUOROSCOPY TIME: 5 seconds of fluoroscopy was used. 1 images saved to PACS. TECHNIQUE: Fluoroscopic and ultrasound guided PICC placement. LIMITATIONS: None. PROCEDURE: After written consent and assessment were obtained, the patient was brought into the fluo roscopy room and placed supine on the table. Ultrasound evaluation of potential access sites were per formed. After successfully identifying a patent left basilic vein, the left arm was prepped and drape d in a sterile fashion along with the ultrasound probe. The entry site was anesthetized with 1% lidoc tim. A 21 gauge 7 cm needle was advanced through the skin and into the basilic vein under live ultra sound guidance. An ultrasound image was saved to PACS confirming access site. A .018 guide wire was then inserted through the needle and into the venous system. The needle was then removed and an 11 b lade scalpel was used to make a 1cm skin incision. A 5 fr peel-away sheath was advanced over the wir e and into the venous system. A measurement was then made using the existing wire and live fluoroscop ic guidance. The wire was then removed and trimmed. The PICC was advanced through the peel-away sheat h and into the venous system. The peel-away sheath was removed and the catheter was adhered to the pa tients arm with a stat lock. The catheter was then aspirated and flushed and a sterile bandage was pl aced over the access site. A fluoroscopic spot image was saved to PACS confirming the catheter tip w ithin the superior vena cava. IMPRESSION: SUCCESSFUL PLACEMENT OF A 5 FR DUAL LUMEN 37 CM PICC IN THE LEFT BASILIC VEIN. COMMENT: Patient medication list reviewed: Yes- Quality ID# [id number]:Eligible professional attests to doc umenting in the medical record they obtained, updated, or reviewed the patient's current medications. . Quality ID 145: Final reports for procedures using fluoroscopy that document radiation exposure paul sherwin, or exposure time and number of fluorographic images (if radiation exposure indices are not avail able) Quality ID #76: The patient was prepped and draped using maximum sterile barrier technique including cap, mask, sterile gown, sterile gloves, a large sterile sheet, hand hygiene, and 2% Chlorhexidine fo r cutaneous antisepsis. When ultrasound is used, sterile ultrasound techniques are followed requiring sterile gel and sterile probes. TECHNICAL DOCUMENTATION: JOB ID: [id number] [employer]- All Rights Reserved rev-02/18 Reading location - IP/workstation name: [email or web address]
[2019-09-15] MEDS: HYDROMORPHONE HCL INJ/PF 2 MG/ML AMPULE IV PRN (20:21)
[2019-09-15] MEDS: ATORVASTATIN CALCIUM 40 MG TABLET PO SCH (22:40)
[2019-09-15] MEDS: NORMAL SALINE 10 ML SDV (SCHEDULED) IV SCH (22:43)
[2019-09-16] MEDS: METRONIDAZOLE 500 MG/NS RTU 500 MG/100 ML RTUPB IV SCH ×4 (05:27→23:50)
[2019-09-16] MEDS: HEPARIN SOD (PORCINE) 5,000 UNIT/ML 1 ML VIAL SUBCUT SCH ×3 (05:27→22:10)
[2019-09-16] MEDS: VANCOMYCIN HCL INJ 500 MG VIAL PO SCH ×4 (05:28→23:50)
[2019-09-16] MEDS: METOCLOPRAMIDE HCL INJ/PF 10 MG/2 ML SDV IV SCH (05:28)
[2019-09-16] MEDS: LEVOTHYROXINE SODIUM 0.05 MG TABLET PO SCH (05:29)
[2019-09-16 05:49] LABS: HEMATOCRIT 23.9 % (36.0-47.0); MEAN CORPUSCULAR HEMOGLOBIN 29.5 pg (27.0-33.4); MEAN CORPUSCULAR HGB CONC 32.6 g/dL (32.0-36.0); MEAN CORPUSCULAR VOLUME 90 fl (80-97); PLATELET COUNT 399 10^3/uL (150-450); RED BLOOD COUNT 2.64 10^6/uL (3.72-5.28); RED CELL DISTRIBUTION WIDTH 14.9 % (11.5-14.0); WHITE BLOOD COUNT 12.7 10^3/uL (4.0-10.5)
[2019-09-16 05:51] LABS: HEMOGLOBIN 7.8 g/dL (12.0-15.5)
[2019-09-16 05:52] LABS: ANION GAP 8 (5-19); BLOOD UREA NITROGEN 6 mg/dL (7-20); CALCIUM 7.4 mg/dL (8.4-10.2); CARBON DIOXIDE 18 mmol/L (22-30); CHLORIDE 116 mmol/L (98-107); GLUCOSE 72 mg/dL (75-110)
[2019-09-16 05:58] LABS: POTASSIUM 2.8 mmol/L (3.6-5.0)
[2019-09-16] MEDS ORDERED: POTASSIUM CHLORIDE 10 MEQ TABLET.ER PO SCH (08:00)
[2019-09-16] MEDS: PROMETHAZINE HCL INJ 25 MG/1 ML VIAL IV PRN ×2 (08:28→17:38)
[2019-09-16] MEDS: HYDROMORPHONE HCL INJ/PF 2 MG/ML AMPULE IV PRN ×3 (08:28→17:37)
--- NOTE | 2019-09-16 08:31 | PDOC PROGRESS REPORT ---
Subjective Progress Note for:: 09/16/19 Subjective:: 09/14/2019-no complaints 09/15/2019-no complaints this a.m. 09/16/2019-no complaints Reason For Visit: C. DIFFICILE COLITIS,UTI,HYPOKALEMIA Physical Exam Vital Signs: Temp Pulse Resp BP Pulse Ox 98.5 F 110 H 14 128/64 H 100 09/16/19 03:24 09/16/19 07:00 09/16/19 03:24 09/16/19 03:24 09/16/19 03:24 Intake & Output 09/15/19 09/16/19 09/17/19 06:59 06:59 06:59 Intake Total 4780 2372 Balance 4780 2372 Weight 58.5 kg 60.1 kg General appearance: PRESENT: no acute distress, well-developed, well-nourished Neck exam: ABSENT: carotid bruit, JVD, lymphadenopathy, thyromegaly Respiratory exam: PRESENT: clear to auscultation parul. ABSENT: rales, rhonchi, wheezes Cardiovascular exam: PRESENT: RRR. ABSENT: diastolic murmur, rubs, systolic murmur Pulses: PRESENT: +1 pedal pulses bilateral Vascular exam: PRESENT: normal capillary refill GI/Abdominal exam: PRESENT: hyperactive bowel sounds, soft Extremities exam: PRESENT: full ROM. ABSENT: calf tenderness, clubbing, pedal edema Neurological exam: PRESENT: alert, awake, oriented to person, oriented to place, oriented to time, oriented to situation, CN II-XII grossly intact. ABSENT: motor sensory deficit Psychiatric exam: PRESENT: appropriate affect, normal mood. ABSENT: homicidal ideation, suicidal ideation Skin exam: PRESENT: dry, intact, warm. ABSENT: cyanosis, rash Results Laboratory Results: 09/16/19 05:21 09/16/19 05:21 09/15/19 09/16/19 09/16/19 05:44 05:21 05:21 WBC 12.7 H RBC 2.64 L Hgb 7.8 L Hct 23.9 L MCV 90 MCH 29.5 MCHC 32.6 RDW 14.9 H Plt Count 399 Sodium 143.1 141.7 Potassium 2.9 L* 2.8 L* Chloride 118 H 116 H Carbon Dioxide 18 L 18 L Anion Gap 7 8 BUN 9 6 L Creatinine 0.85 0.75 Est GFR ( Amer) > 60 > 60 Glucose 88 72 L Calcium 7.6 L 7.4 L 09/13/19 11:40 Troponin I < 0.012 Impressions: Abdomen/Pelvis CT 09/13/19 12:05 IMPRESSION: 1. There is thickening of the cecum and proximal transverse colon (series 601, image 28, series 3, image 35), consistent with nonspecific infectious, inflammatory, or ischemic colitis. 2. Status post right nephrectomy. Guidance Fluoroscopy 09/15/19 00:00 IMPRESSION: SUCCESSFUL PLACEMENT OF A 5 FR DUAL LUMEN 37 CM PICC IN THE LEFT BASILIC VEIN. Interventional Vascular Procedure 09/15/19 00:00 IMPRESSION: SUCCESSFUL PLACEMENT OF A 5 FR DUAL LUMEN 37 CM PICC IN THE LEFT BASILIC VEIN. PICC Line Insertion 09/15/19 00:00 IMPRESSION: SUCCESSFUL PLACEMENT OF A 5 FR DUAL LUMEN 37 CM PICC IN THE LEFT BASILIC VEIN. Assessment and Plan - Diagnosis (1) C. difficile colitis Is this a current diagnosis for this admission?: Yes Plan: 09/13/2019-await C. difficile toxin. Will place patient on Flagyl 500 mg every 6 hours and vancomycin 500 mg p.o. every 6 hours. Will treat pain with Dilaudid 0.5 mg IV every 3 hours. Will give patient a clear liquid diet. Will follow make change plan of care as appropriate 09/14/2019-C. difficile toxin positive. Patient continued on Flagyl 500 mg IV every 6 hours and vancomycin 500 mg p.o. every 6 hours. Patient showing improvement at this time white count down to 31,000. We will continue current therapy. 09/15/2019-improved. Patient's white count down to 18,000. Diarrhea is slowing. Flagyl 500 mg IV every 6 and vancomycin 500 mg p.o. every 6 continues. 09/16/2019-showing improvement. White count down to 12,000. Flagyl and vancomycin continues. (2) Hypokalemia Is this a current diagnosis for this admission?: Yes Plan: 09/13/2019-patient receiving potassium riders total 60 mEq IV will repeat BMP in a.m. 09/14/2019-potassium 3.1 this morning. We will give potassium chloride riders times 4 repeat BMP in a.m. 09/15/2019-awaiting a.m. labs 09/16/2019-potassium chloride 40 mEq p.o. x3 doses repeat BMP in the a.m. (3) Dehydration Is this a current diagnosis for this admission?: Yes Plan: 09/13/2019-normal saline x2 L in the ER. Will continue normal saline 125 mL an hour. Repeat BMP in a.m. 09/14/2019-continue hydration as patient is not taking oral at this time very well. 09/15/2019-I have decreased IV fluids to 50 mL/h and will continue clear liquid diet. 09/16/2019-DC IV fluids at this time. Continue clear liquid diet (4) Pain Is this a current diagnosis for this admission?: Yes Plan: 09/13/2019-Dilaudid 0.5 mill grams IV every 3 hours PRN 09/14/[id number] continue current therapy 09/15/[id number]. Continue Dilaudid. 09/16/2019-stable continue Dilaudid as needed (5) Nausea & vomiting Is this a current diagnosis for this admission?: Yes Plan: 09/13/2019-alternating Zofran and Phenergan IV. 09/14/2019-improved continue as needed Zofran and Phenergan 09/15/2019-improved. Continue Zofran and Phenergan as needed 09/16/2019-continue Zofran and Phenergan as needed. (6) Hypomagnesemia Is this a current diagnosis for this admission?: Yes Plan: 09/14/2019-magnesium 1.4. Give 2 g IV mag at this time repeat magnesium level in a.m. 09/15/2019-resolved. Stable follow 09/16/2019-stable (7) Gram positive septicemia Is this a current diagnosis for this admission?: Yes Plan: 09/15/2019-I have added vancomycin per pharmacy dosing to patient's regimen. Await cultures 09/16/2019-awaiting cultures. Vancomycin continues per pharmacy dosing - Time Time Spent with patient: 15-24 minutes - Inpatient Certification Based on my medical assessment, after consideration of the patient's comorbidities, presenting symptoms, or acuity I expect that the services needed warrant INPATIENT care.: Yes I certify that my determination is in accordance with my understanding of Medicare's requirements for reasonable and necessary INPATIENT services [42 CFR 412.3e].: Yes Medical Necessity: Significant Comorbidiites Make Outpatient Treatment Too Risky, Need Close Monitoring Due to Risk of Patient Decompensation, Need for IV Antibiotics
[2019-09-16] MEDS: NORMAL SALINE 10 ML SDV (SCHEDULED) IV SCH (09:46)
[2019-09-16] MEDS: VENLAFAXINE HCL 75 MG CAP.SR.24H PO SCH (09:46)
[2019-09-16] MEDS: POTASSIUM CHLORIDE 10 MEQ TABLET.ER PO SCH ×3 (09:46→17:38)
[2019-09-16] MEDS: CEFTRIAXONE 1 GM/D5W RTU 1 GM/50 ML RTUPB IV SCH (09:47)
[2019-09-16] MEDS: VANCOMYCIN HCL 1,000 MG in DEXTROSE 5%-WATER 250 ML IV SCH (10:40)
[2019-09-16] MEDS: ATORVASTATIN CALCIUM 40 MG TABLET PO SCH (22:10)
[2019-09-17] MEDS: PROMETHAZINE HCL INJ 25 MG/1 ML VIAL IV PRN ×3 (00:24→17:32)
[2019-09-17] MEDS: ALPRAZOLAM 0.25 MG TABLET PO PRN ×2 (00:44→15:28)
[2019-09-17] MEDS: NORMAL SALINE 10 ML SDV (SCHEDULED) IV SCH ×3 (01:36→22:52)
[2019-09-17] MEDS: VANCOMYCIN HCL INJ 500 MG VIAL PO SCH ×3 (05:25→17:32)
[2019-09-17] MEDS: HEPARIN SOD (PORCINE) 5,000 UNIT/ML 1 ML VIAL SUBCUT SCH ×3 (05:25→22:50)
[2019-09-17] MEDS: LEVOTHYROXINE SODIUM 0.05 MG TABLET PO SCH (05:26)
[2019-09-17] MEDS: METRONIDAZOLE 500 MG/NS RTU 500 MG/100 ML RTUPB IV SCH ×3 (05:26→17:33)
[2019-09-17 06:28] LABS: HEMATOCRIT 24.3 % (36.0-47.0); HEMOGLOBIN 8.1 g/dL (12.0-15.5); MEAN CORPUSCULAR HEMOGLOBIN 30.2 pg (27.0-33.4); MEAN CORPUSCULAR HGB CONC 33.2 g/dL (32.0-36.0); MEAN CORPUSCULAR VOLUME 91 fl (80-97); PLATELET COUNT 382 10^3/uL (150-450); RED BLOOD COUNT 2.68 10^6/uL (3.72-5.28); RED CELL DISTRIBUTION WIDTH 14.9 % (11.5-14.0); WHITE BLOOD COUNT 11.3 10^3/uL (4.0-10.5)
[2019-09-17 06:45] LABS: ANION GAP 9 (5-19); BLOOD UREA NITROGEN 3 mg/dL (7-20); CALCIUM 7.9 mg/dL (8.4-10.2); CARBON DIOXIDE 19 mmol/L (22-30); CHLORIDE 114 mmol/L (98-107); GLUCOSE 97 mg/dL (75-110); POTASSIUM 3.6 mmol/L (3.6-5.0)
--- NOTE | 2019-09-17 08:29 | PDOC PROGRESS REPORT ---
Subjective Progress Note for:: 09/17/19 Subjective:: 09/14/2019-no complaints 09/15/2019-no complaints this a.m. 09/16/2019-no complaints 09/17/2019-no complaints this a.m. Reason For Visit: C. DIFFICILE COLITIS,UTI,HYPOKALEMIA Physical Exam Vital Signs: Temp Pulse Resp BP Pulse Ox 98.4 F 86 17 105/47 L 95 09/17/19 07:20 09/17/19 07:20 09/17/19 07:20 09/17/19 07:20 09/17/19 07:20 Intake & Output 09/16/19 09/17/19 09/18/19 06:59 06:59 06:59 Intake Total 2372 1892 Balance 2372 1892 Weight 60.1 kg 56.9 kg General appearance: PRESENT: no acute distress, well-developed, well-nourished Neck exam: ABSENT: carotid bruit, JVD, lymphadenopathy, thyromegaly Respiratory exam: PRESENT: clear to auscultation parul. ABSENT: rales, rhonchi, wheezes Cardiovascular exam: PRESENT: RRR. ABSENT: diastolic murmur, rubs, systolic murmur Pulses: PRESENT: +1 pedal pulses bilateral Vascular exam: PRESENT: normal capillary refill GI/Abdominal exam: PRESENT: normal bowel sounds, soft Extremities exam: PRESENT: full ROM. ABSENT: calf tenderness, clubbing, pedal edema Neurological exam: PRESENT: alert, awake, oriented to person, oriented to place, oriented to time, oriented to situation, CN II-XII grossly intact. ABSENT: motor sensory deficit Psychiatric exam: PRESENT: appropriate affect, normal mood. ABSENT: homicidal ideation, suicidal ideation Skin exam: PRESENT: dry, intact, warm. ABSENT: cyanosis, rash Results Laboratory Results: 09/17/19 05:35 09/17/19 05:35 09/17/19 09/17/19 05:35 05:35 WBC 11.3 H RBC 2.68 L Hgb 8.1 L Hct 24.3 L MCV 91 MCH 30.2 MCHC 33.2 RDW 14.9 H Plt Count 382 Sodium 142.3 Potassium 3.6 Chloride 114 H Carbon Dioxide 19 L Anion Gap 9 BUN 3 L Creatinine 0.75 Est GFR ( Amer) > 60 Glucose 97 Calcium 7.9 L 09/13/19 11:40 Troponin I < 0.012 Impressions: Abdomen/Pelvis CT 09/13/19 12:05 IMPRESSION: 1. There is thickening of the cecum and proximal transverse colon (series 601, image 28, series 3, image 35), consistent with nonspecific infectious, inflammatory, or ischemic colitis. 2. Status post right nephrectomy. Guidance Fluoroscopy 09/15/19 00:00 IMPRESSION: SUCCESSFUL PLACEMENT OF A 5 FR DUAL LUMEN 37 CM PICC IN THE LEFT BASILIC VEIN. Interventional Vascular Procedure 09/15/19 00:00 IMPRESSION: SUCCESSFUL PLACEMENT OF A 5 FR DUAL LUMEN 37 CM PICC IN THE LEFT BASILIC VEIN. PICC Line Insertion 09/15/19 00:00 IMPRESSION: SUCCESSFUL PLACEMENT OF A 5 FR DUAL LUMEN 37 CM PICC IN THE LEFT BASILIC VEIN. Assessment and Plan - Diagnosis (1) C. difficile colitis Is this a current diagnosis for this admission?: Yes Plan: 09/13/2019-await C. difficile toxin. Will place patient on Flagyl 500 mg every 6 hours and vancomycin 500 mg p.o. every 6 hours. Will treat pain with Dilaudid 0.5 mg IV every 3 hours. Will give patient a clear liquid diet. Will follow make change plan of care as appropriate 09/14/2019-C. difficile toxin positive. Patient continued on Flagyl 500 mg IV every 6 hours and vancomycin 500 mg p.o. every 6 hours. Patient showing improvement at this time white count down to 31,000. We will continue current therapy. 09/15/2019-improved. Patient's white count down to 18,000. Diarrhea is slowing. Flagyl 500 mg IV every 6 and vancomycin 500 mg p.o. every 6 continues. 09/16/2019-showing improvement. White count down to 12,000. Flagyl and vancomycin continues. 09/17/2019-white count down to 11.3. Flagyl and vancomycin continues. Diarrhea has slowed down and patient is able to take a full diet at this time. (2) Hypokalemia Is this a current diagnosis for this admission?: Yes Plan: 09/13/2019-patient receiving potassium riders total 60 mEq IV will repeat BMP in a.m. 09/14/2019-potassium 3.1 this morning. We will give potassium chloride riders times 4 repeat BMP in a.m. 09/15/2019-awaiting a.m. labs 09/16/2019-potassium chloride 40 mEq p.o. x3 doses repeat BMP in the a.m. 09/17/2019-resolved. Stable (3) Dehydration Is this a current diagnosis for this admission?: Yes Plan: 09/13/2019-normal saline x2 L in the ER. Will continue normal saline 125 mL an hour. Repeat BMP in a.m. 09/14/2019-continue hydration as patient is not taking oral at this time very well. 09/15/2019-I have decreased IV fluids to 50 mL/h and will continue clear liquid diet. 09/16/2019-DC IV fluids at this time. Continue clear liquid diet 09/17/2019-patient taking diet well. IV fluids have been DC'd. Continue to follow (4) Pain Is this a current diagnosis for this admission?: Yes Plan: 09/13/2019-Dilaudid 0.5 mill grams IV every 3 hours PRN 09/14/[id number] continue current therapy 09/15/[id number]. Continue Dilaudid. 09/16/2019-stable continue Dilaudid as needed 09/17/2018-much improved. Continue Dilaudid as needed (5) Nausea & vomiting Is this a current diagnosis for this admission?: Yes Plan: 09/13/2019-alternating Zofran and Phenergan IV. 09/14/2019-improved continue as needed Zofran and Phenergan 09/15/2019-improved. Continue Zofran and Phenergan as needed 09/16/2019-continue Zofran and Phenergan as needed. 09/17/2018-improved. Continue Phenergan and Zofran as needed (6) Hypomagnesemia Is this a current diagnosis for this admission?: Yes Plan: 09/14/2019-magnesium 1.4. Give 2 g IV mag at this time repeat magnesium level in a.m. 09/15/2019-resolved. Stable follow 09/16/2019-stable 09/17/2019-resolved stable (7) Gram positive septicemia Is this a current diagnosis for this admission?: Yes Plan: 09/15/2019-I have added vancomycin per pharmacy dosing to patient's regimen. Await cultures 09/16/2019-awaiting cultures. Vancomycin continues per pharmacy dosing 09/17/2019-this appears to be a staph mitis infection at a susceptible to vancomycin and multiple other medications. At this time patient on vancomycin will continue this possible discharge to rehab tomorrow we will place on appropriate p.o. antibiotics at that time. - Time Time Spent with patient: 15-24 minutes - Inpatient Certification Based on my medical assessment, after consideration of the patient's comorbidities, presenting symptoms, or acuity I expect that the services needed warrant INPATIENT care.: Yes I certify that my determination is in accordance with my understanding of Medicare's requirements for reasonable and necessary INPATIENT services [42 CFR 412.3e].: Yes Medical Necessity: Significant Comorbidiites Make Outpatient Treatment Too Risky, Need Close Monitoring Due to Risk of Patient Decompensation, Need for Pain Control, Need for IV Antibiotics
[2019-09-17] MEDS: CEFTRIAXONE 1 GM/D5W RTU 1 GM/50 ML RTUPB IV SCH (09:50)
[2019-09-17] MEDS: VANCOMYCIN HCL 1,000 MG in DEXTROSE 5%-WATER 250 ML IV SCH (09:52)
[2019-09-17] MEDS: VENLAFAXINE HCL 75 MG CAP.SR.24H PO SCH (11:06)
[2019-09-17] MEDS: ONDANSETRON HCL INJ/PF 4 MG/2 ML SDV IV PRN (15:29)
--- NOTE | 2019-09-17 15:48 | RADIOLOGY REPORT (SQ) ---
EXAM DESCRIPTION: CT ABD/PELVIS WITH IV ONLY COMPLETED DATE/TIME: 09/17/2019 3:28 pm REASON FOR STUDY: abdominal pain COMPARISON: 09/13/2019 TECHNIQUE: CT scan of the abdomen and pelvis performed using helical scanning technique with dynamic intravenous contrast injection. No oral contrast. Images reviewed with lung, soft tissue, and bone windows. Reconstructed coronal and sagittal MPR images reviewed. Delayed images for evaluation of the urinary system also acquired. All images stored on PACS. All CT scanners at this facility use dose modulation, iterative reconstruction, and/or weight based d osing when appropriate to reduce radiation dose to as low as reasonably achievable (ALARA). [facility]: Dose Right [facility]: CareDose [facility]: Dose Right [facility]: Teradose 4D [facility]: [employer] CONTRAST TYPE AND DOSE: contrast/concentration: Isovue 300.00 mg/ml; Total Contrast Delivered: 59.0 ml; Total Saline Delivered: 51.0 ml RENAL FUNCTION: Creatinine 0.75 RADIATION DOSE: CT Rad equipment meets quality standard of care and radiation dose reduction techniq ues were employed. CTDIvol: 5.9 - 8.1 mGy. DLP: 660 mGy-cm.. LIMITATIONS: None. FINDINGS: LOWER CHEST: Small right pleural effusion has developed. Mild pericardial thickening. Ca rdiomegaly. Densely calcified right middle lobe nodule. Mild atelectasis in the lingula. LIVER: Normal size. No masses. No dilated ducts. SPLEEN: Normal size. No focal lesions. PANCREAS: Mildly fatty. GALLBLADDER: Surgically absent. ADRENAL GLANDS: No significant masses or asymmetry. RIGHT KIDNEY AND URETER: Surgically absent. Bowel fills the renal fossa. LEFT KIDNEY AND URETER: Suspected tiny cysts, difficult evaluation given size. No obstructive change s. AORTA AND VESSELS: Dense aortic calcification without aneurysm or dissection. Generally patent major arterial structures. Includes mesenteric arteries. No venous clot detected. RETROPERITONEUM: No retroperitoneal adenopathy, hemorrhage or masses. BOWEL AND PERITONEAL CAVITY: Suspected colitis, as before. This is relatively diffuse. Some fluid d istention in the base of the cecum with wall thickening generally otherwise. Relative sparing of the sigmoid. No fixed mechanical bowel obstruction. No ascites or abnormal gas. APPENDIX: Normal. PELVIS: Partially obscured by right hip replaced artifact. Normal as assessed. ABDOMINAL WALL: No masses. No hernias. BONES: Several chronic thoracic and lumbar compression deformities. OTHER: No other significant finding. IMPRESSION: 1. Colitis, as previously seen. This involves much of the colon. No evidence of perforation or deve loping abscess. No bowel obstruction. 2. New small right pleural effusion. TECHNICAL DOCUMENTATION: JOB ID: [id number] Quality ID # [id number]: Final reports with documentation of one or more dose reduction techniques (e.g., Au tomated exposure control, adjustment of the mA and/or kV according to patient size, use of iterative reconstruction technique) 2010 [employer]- All Rights Reserved Reading location - IP/workstation name: [email or web address]
[2019-09-17] MEDS: HYDROMORPHONE HCL INJ/PF 2 MG/ML AMPULE IV PRN (20:40)
[2019-09-17] MEDS: ATORVASTATIN CALCIUM 40 MG TABLET PO SCH (22:51)
[2019-09-18] MEDS: PROMETHAZINE HCL INJ 25 MG/1 ML VIAL IV PRN ×3 (00:30→20:31)
[2019-09-18] MEDS: ALPRAZOLAM 0.25 MG TABLET PO PRN ×2 (00:30→11:48)
[2019-09-18] MEDS: METRONIDAZOLE 500 MG/NS RTU 500 MG/100 ML RTUPB IV SCH ×2 (00:46→05:17)
[2019-09-18] MEDS ORDERED: VANCOMYCIN HCL INJ 500 MG VIAL ONE ×2 (00:50→05:21)
[2019-09-18] MEDS: VANCOMYCIN HCL INJ 500 MG VIAL PO SCH ×4 (00:59→17:46)
[2019-09-18 04:59] LABS: HEMATOCRIT 24.8 % (36.0-47.0); HEMOGLOBIN 8.3 g/dL (12.0-15.5); MEAN CORPUSCULAR HEMOGLOBIN 30.2 pg (27.0-33.4); MEAN CORPUSCULAR HGB CONC 33.4 g/dL (32.0-36.0); MEAN CORPUSCULAR VOLUME 90 fl (80-97); PLATELET COUNT 405 10^3/uL (150-450); RED BLOOD COUNT 2.74 10^6/uL (3.72-5.28); RED CELL DISTRIBUTION WIDTH 15.5 % (11.5-14.0); WHITE BLOOD COUNT 10.7 10^3/uL (4.0-10.5)
[2019-09-18 05:12] LABS: ANION GAP 7 (5-19); CALCIUM 7.9 mg/dL (8.4-10.2); CARBON DIOXIDE 23 mmol/L (22-30); CHLORIDE 112 mmol/L (98-107); GLUCOSE 80 mg/dL (75-110); POTASSIUM 3.1 mmol/L (3.6-5.0)
[2019-09-18] MEDS: HEPARIN SOD (PORCINE) 5,000 UNIT/ML 1 ML VIAL SUBCUT SCH ×3 (05:18→21:05)
[2019-09-18] MEDS: LEVOTHYROXINE SODIUM 0.05 MG TABLET PO SCH (05:18)
[2019-09-18 05:19] LABS: BLOOD UREA NITROGEN < 2 mg/dL (7-20)
[2019-09-18] MEDS: NORMAL SALINE 10 ML SDV (AFTER EACH USE) IV PRN ×2 (08:36→17:59)
--- NOTE | 2019-09-18 08:58 | PDOC PROGRESS REPORT ---
Subjective Progress Note for:: 09/18/19 Subjective:: 09/14/2019-no complaints 09/15/2019-no complaints this a.m. 09/16/2019-no complaints 09/17/2019-no complaints this a.m. 09/18/2019-no complaints states she is feeling much better this morning Reason For Visit: C. DIFFICILE COLITIS,UTI,HYPOKALEMIA Physical Exam Vital Signs: Temp Pulse Resp BP Pulse Ox 99.0 F 86 17 121/62 97 09/18/19 07:55 09/18/19 07:55 09/18/19 07:55 09/18/19 07:55 09/18/19 07:55 Intake & Output 09/17/19 09/18/19 09/19/19 06:59 06:59 06:59 Intake Total 1892 1181 Output Total 500 Balance 1892 681 Weight 56.9 kg 61.6 kg General appearance: PRESENT: no acute distress, well-developed, well-nourished Neck exam: ABSENT: carotid bruit, JVD, lymphadenopathy, thyromegaly Respiratory exam: PRESENT: clear to auscultation parul. ABSENT: rales, rhonchi, wheezes Cardiovascular exam: PRESENT: RRR. ABSENT: diastolic murmur, rubs, systolic murmur Pulses: PRESENT: +1 pedal pulses bilateral Vascular exam: PRESENT: normal capillary refill GI/Abdominal exam: PRESENT: normal bowel sounds, soft. ABSENT: distended, guarding, mass, organolmegaly, rebound, tenderness Extremities exam: PRESENT: full ROM. ABSENT: calf tenderness, clubbing, pedal edema Neurological exam: PRESENT: alert, awake, oriented to person, oriented to place, oriented to time, oriented to situation, CN II-XII grossly intact. ABSENT: motor sensory deficit Psychiatric exam: PRESENT: appropriate affect, normal mood. ABSENT: homicidal ideation, suicidal ideation Skin exam: PRESENT: dry, intact, warm. ABSENT: cyanosis, rash Results Laboratory Results: 09/18/19 04:35 09/18/19 04:35 09/18/19 09/18/19 04:35 04:35 WBC 10.7 H RBC 2.74 L Hgb 8.3 L Hct 24.8 L MCV 90 MCH 30.2 MCHC 33.4 RDW 15.5 H Plt Count 405 Sodium 141.6 Potassium 3.1 L Chloride 112 H Carbon Dioxide 23 Anion Gap 7 BUN < 2 L Creatinine 0.77 Est GFR ( Amer) > 60 Glucose 80 Calcium 7.9 L 09/13/19 12:40 Blood Blood Culture (PCR) - Final Staphylococcus Species Streptococcus Species 09/13/19 12:40 Blood Blood Culture - Final Strep Mitis/Oralis Grp Staphylococcus Hominis 09/13/19 11:40 Troponin I < 0.012 Impressions: Guidance Fluoroscopy 09/15/19 00:00 IMPRESSION: SUCCESSFUL PLACEMENT OF A 5 FR DUAL LUMEN 37 CM PICC IN THE LEFT BASILIC VEIN. Interventional Vascular Procedure 09/15/19 00:00 IMPRESSION: SUCCESSFUL PLACEMENT OF A 5 FR DUAL LUMEN 37 CM PICC IN THE LEFT BASILIC VEIN. PICC Line Insertion 09/15/19 00:00 IMPRESSION: SUCCESSFUL PLACEMENT OF A 5 FR DUAL LUMEN 37 CM PICC IN THE LEFT BASILIC VEIN. Abdomen/Pelvis CT 09/17/19 10:48 IMPRESSION: 1. Colitis, as previously seen. This involves much of the colon. No evidence of perforation or developing abscess. No bowel obstruction. 2. New small right pleural effusion. Assessment and Plan - Diagnosis (1) C. difficile colitis Is this a current diagnosis for this admission?: Yes Plan: 09/13/2019-await C. difficile toxin. Will place patient on Flagyl 500 mg every 6 hours and vancomycin 500 mg p.o. every 6 hours. Will treat pain with Dilaudid 0.5 mg IV every 3 hours. Will give patient a clear liquid diet. Will follow make change plan of care as appropriate 09/14/2019-C. difficile toxin positive. Patient continued on Flagyl 500 mg IV every 6 hours and vancomycin 500 mg p.o. every 6 hours. Patient showing improvement at this time white count down to 31,000. We will continue current therapy. 09/15/2019-improved. Patient's white count down to 18,000. Diarrhea is slowing. Flagyl 500 mg IV every 6 and vancomycin 500 mg p.o. every 6 continues. 09/16/2019-showing improvement. White count down to 12,000. Flagyl and vancomycin continues. 09/17/2019-white count down to 11.3. Flagyl and vancomycin continues. Diarrhea has slowed down and patient is able to take a full diet at this time. 09/18/2019-white count is normalized. I have DC'd IV Flagyl will continue vancomycin p.o. Patient continues with full diet. (2) Hypokalemia Is this a current diagnosis for this admission?: Yes Plan: 09/13/2019-patient receiving potassium riders total 60 mEq IV will repeat BMP in a.m. 09/14/2019-potassium 3.1 this morning. We will give potassium chloride riders times 4 repeat BMP in a.m. 09/15/2019-awaiting a.m. labs 09/16/2019-potassium chloride 40 mEq p.o. x3 doses repeat BMP in the a.m. 09/17/2019-resolved. Stable 09/18/2019-potassium 3.1. 40 mEq potassium chloride p.o. x2 doses. Repeat BMP in a.m. (3) Dehydration Is this a current diagnosis for this admission?: Yes Plan: 09/13/2019-normal saline x2 L in the ER. Will continue normal saline 125 mL an hour. Repeat BMP in a.m. 09/14/2019-continue hydration as patient is not taking oral at this time very well. 09/15/2019-I have decreased IV fluids to 50 mL/h and will continue clear liquid diet. 09/16/2019-DC IV fluids at this time. Continue clear liquid diet 09/17/2019-patient taking diet well. IV fluids have been DC'd. Continue to follow 09/18/2019-stable continues to p.o. fluids (4) Pain Is this a current diagnosis for this admission?: Yes Plan: 09/13/2019-Dilaudid 0.5 mill grams IV every 3 hours PRN 09/14/[id number] continue current therapy [id number]/[id number]. Continue Dilaudid. 09/16/2019-stable continue Dilaudid as needed 09/17/2018-much improved. Continue Dilaudid as needed 09/18/2019-improved continue Dilaudid as needed (5) Nausea & vomiting Is this a current diagnosis for this admission?: Yes Plan: 09/13/2019-alternating Zofran and Phenergan IV. 09/14/2019-improved continue as needed Zofran and Phenergan 09/15/2019-improved. Continue Zofran and Phenergan as needed 09/16/2019-continue Zofran and Phenergan as needed. 09/17/2018-improved. Continue Phenergan and Zofran as needed 09/18/2019-improved. Stable (6) Hypomagnesemia Is this a current diagnosis for this admission?: Yes Plan: 09/14/2019-magnesium 1.4. Give 2 g IV mag at this time repeat magnesium level in a.m. 09/15/2019-resolved. Stable follow 09/16/2019-stable 09/17/2019-resolved stable 09/18/2019-stable (7) Gram positive septicemia Is this a current diagnosis for this admission?: Yes Plan: 09/15/2019-I have added vancomycin per pharmacy dosing to patient's regimen. Await cultures 09/16/2019-awaiting cultures. Vancomycin continues per pharmacy dosing 09/17/2019-this appears to be a staph mitis infection at a susceptible to vancomycin and multiple other medications. At this time patient on vancomycin will continue this possible discharge to rehab tomorrow we will place on appropriate p.o. antibiotics at that time. 09/18/2019-staph mitis show susceptibility to Rocephin. I have DC'd vancomycin and will continue Rocephin 1 g daily at this time. - Time Time Spent with patient: 15-24 minutes - Inpatient Certification Based on my medical assessment, after consideration of the patient's comor bidities, presenting symptoms, or acuity I expect that the services needed warrant INPATIENT care.: Yes I certify that my determination is in accordance with my understanding of Medicare's requirements for reasonable and necessary INPATIENT services [42 CFR 412.3e].: Yes Medical Necessity: Significant Comorbidiites Make Outpatient Treatment Too Risky, Need Close Monitoring Due to Risk of Patient Decompensation, Need for IV Antibiotics
[2019-09-18] MEDS: CEFTRIAXONE 1 GM/D5W RTU 1 GM/50 ML RTUPB IV SCH (09:33)
[2019-09-18] MEDS: POTASSIUM CHLORIDE 10 MEQ TABLET.ER PO SCH ×2 (09:33→15:10)
[2019-09-18] MEDS: NORMAL SALINE 10 ML SDV (SCHEDULED) IV SCH ×2 (09:34→21:18)
[2019-09-18] MEDS: VENLAFAXINE HCL 75 MG CAP.SR.24H PO SCH (10:27)
[2019-09-18 10:34] LABS: VANCOMYCIN,TROUGH 10.2 ug/mL (5.0-20.0)
[2019-09-18] MEDS: HYDROMORPHONE HCL INJ/PF 2 MG/ML AMPULE IV PRN ×3 (11:54→21:12)
[2019-09-18] MEDS: ATORVASTATIN CALCIUM 40 MG TABLET PO SCH (21:05)
[2019-09-19] MEDS ORDERED: VANCOMYCIN HCL INJ 500 MG VIAL ONE ×2 (00:26→23:51)
[2019-09-19] MEDS: VANCOMYCIN HCL INJ 500 MG VIAL PO SCH ×4 (00:32→17:37)
[2019-09-19] MEDS: HYDROMORPHONE HCL INJ/PF 2 MG/ML AMPULE IV PRN ×5 (01:16→19:43)
[2019-09-19] MEDS: HEPARIN SOD (PORCINE) 5,000 UNIT/ML 1 ML VIAL SUBCUT SCH ×3 (05:20→21:03)
[2019-09-19] MEDS: LEVOTHYROXINE SODIUM 0.05 MG TABLET PO SCH (05:20)
[2019-09-19] MEDS: PROMETHAZINE HCL INJ 25 MG/1 ML VIAL IV PRN ×3 (05:29→21:03)
[2019-09-19 09:17] LABS: HEMATOCRIT 26.4 % (36.0-47.0); HEMOGLOBIN 8.7 g/dL (12.0-15.5); MEAN CORPUSCULAR HEMOGLOBIN 30.3 pg (27.0-33.4); MEAN CORPUSCULAR HGB CONC 32.8 g/dL (32.0-36.0); MEAN CORPUSCULAR VOLUME 92 fl (80-97); PLATELET COUNT 416 10^3/uL (150-450); RED BLOOD COUNT 2.86 10^6/uL (3.72-5.28); RED CELL DISTRIBUTION WIDTH 15.5 % (11.5-14.0); WHITE BLOOD COUNT 11.1 10^3/uL (4.0-10.5)
[2019-09-19 09:36] LABS: ANION GAP 10 (5-19); BLOOD UREA NITROGEN 2 mg/dL (7-20); CALCIUM 8.3 mg/dL (8.4-10.2); CARBON DIOXIDE 20 mmol/L (22-30); CHLORIDE 110 mmol/L (98-107); GLUCOSE 84 mg/dL (75-110); POTASSIUM 4.3 mmol/L (3.6-5.0)
[2019-09-19 09:57] LABS: ABSOLUTE LYMPHOCYTES# (MANUAL) 2.6 10^3/uL (0.5-4.7); BAND NEUTROPHILS % (MANUAL) 1 % (3-5); BASOPHILS % (MANUAL) 0 % (0-2); EOSINOPHILS % (MANUAL) 5 % (0-6); LYMPHOCYTES % (MANUAL) 23 % (13-45); MONOCYTES % (MANUAL) 18 % (3-13); SEGMENTED NEUTROPHILS % (MAN) 53 % (42-78); TOTAL CELLS COUNTED 100
[2019-09-19 09:58] LABS: OVALOCYTES SLIGHT; POLYCHROMASIA SLIGHT; SCHISTOCYTES SLIGHT
[2019-09-19 09:59] LABS: ANISOCYTOSIS 1+; PLATELET COMMENT ADEQUATE
[2019-09-19] MEDS: CEFTRIAXONE 1 GM/D5W RTU 1 GM/50 ML RTUPB IV SCH (10:01)
[2019-09-19] MEDS: VENLAFAXINE HCL 75 MG CAP.SR.24H PO SCH (10:02)
[2019-09-19] MEDS: NORMAL SALINE 10 ML SDV (SCHEDULED) IV SCH ×2 (10:02→21:04)
[2019-09-19] MEDS: NORMAL SALINE 10 ML SDV (AFTER EACH USE) IV PRN ×2 (10:19→14:55)
--- NOTE | 2019-09-19 12:15 | PDOC PROGRESS REPORT ---
Subjective Progress Note for:: 09/19/19 Subjective:: Patient states that she has not had an episode of diarrhea since yesterday afternoon. Abdominal pain is significantly improved. Denies any nausea or vomiting currently. Reason For Visit: C. DIFFICILE COLITIS,UTI,HYPOKALEMIA Physical Exam Vital Signs: Temp Pulse Resp BP Pulse Ox 98.2 F 80 17 106/54 L 94 09/19/19 08:20 09/19/19 08:20 09/19/19 08:20 09/19/19 08:20 09/19/19 08:20 Intake & Output 09/18/19 09/19/19 09/20/19 06:59 06:59 06:59 Intake Total 1181 550 Output Total 500 0 Balance 681 550 Weight 61.6 kg 61.1 kg General appearance: PRESENT: no acute distress, cooperative Neck exam: ABSENT: JVD Respiratory exam: PRESENT: clear to auscultation parul, symmetrical, unlabored. ABSENT: tachypnea, wheezes Cardiovascular exam: PRESENT: RRR, +S1, +S2. ABSENT: tachycardia GI/Abdominal exam: PRESENT: hyperactive bowel sounds, soft, tenderness - Mild diffuse tenderness. ABSENT: distended, firm, guarding, rebound, rigid Neurological exam: PRESENT: alert, awake, oriented to person, oriented to place, oriented to time Results Laboratory Results: 09/19/19 09:00 09/19/19 09:00 09/19/19 09/19/19 09:00 09:00 WBC 11.1 H RBC 2.86 L Hgb 8.7 L Hct 26.4 L MCV 92 MCH 30.3 MCHC 32.8 RDW 15.5 H Plt Count 416 Seg Neutrophils % Not Reportable Sodium 140.4 Potassium 4.3 Chloride 110 H Carbon Dioxide 20 L Anion Gap 10 BUN 2 L Creatinine 0.86 Est GFR ( Amer) > 60 Glucose 84 Calcium 8.3 L Magnesium 1.6 09/13/19 15:08 Blood Blood Culture - Final NO GROWTH IN 5 DAYS 09/13/19 11:40 Troponin I < 0.012 Impressions: Guidance Fluoroscopy 09/15/19 00:00 IMPRESSION: SUCCESSFUL PLACEMENT OF A 5 FR DUAL LUMEN 37 CM PICC IN THE LEFT BASILIC VEIN. Interventional Vascular Procedure 09/15/19 00:00 IMPRESSION: SUCCESSFUL PLACEMENT OF A 5 FR DUAL LUMEN 37 CM PICC IN THE LEFT BASILIC VEIN. PICC Line Insertion 09/15/19 00:00 IMPRESSION: SUCCESSFUL PLACEMENT OF A 5 FR DUAL LUMEN 37 CM PICC IN THE LEFT BASILIC VEIN. Abdomen/Pelvis CT 09/17/19 10:48 IMPRESSION: 1. Colitis, as previously seen. This involves much of the colon. No evidence of perforation or developing abscess. No bowel obstruction. 2. New small right pleural effusion. Assessment and Plan - Diagnosis (1) Bacteremia due to Staphylococcus Is this a current diagnosis for this admission?: Yes Plan: Staphylococcus mitis and hominis bacteremia noted on initial blood work Repeat blood cultures have been negative at completion Day 5 of antibiotic Continue ceftriaxone for now and switch to p.o. Levaquin to complete 10-day regimen (2) C. difficile colitis Is this a current diagnosis for this admission?: Yes Plan: Patient's diarrhea seems to have finally slowed down. Received IV Flagyl for about 4 to 5 days Continue p.o. Vanco day 6 to complete 10 days of oral vancomycin (3) Dehydration Is this a current diagnosis for this admission?: Yes Plan: Continue to encourage oral hydration (4) Hypokalemia Is this a current diagnosis for this admission?: Yes Plan: Secondary to diarrhea Currently resolved with supplementation with oral potassium - Time Time Spent with patient: 15-24 minutes
[2019-09-19] MEDS: ATORVASTATIN CALCIUM 40 MG TABLET PO SCH (21:03)
[2019-09-20] MEDS: HYDROMORPHONE HCL INJ/PF 2 MG/ML AMPULE IV PRN ×3 (00:02→11:43)
[2019-09-20] MEDS: VANCOMYCIN HCL INJ 500 MG VIAL PO SCH ×3 (00:02→11:44)
[2019-09-20] MEDS: PROMETHAZINE HCL INJ 25 MG/1 ML VIAL IV PRN ×3 (05:32→21:20)
[2019-09-20] MEDS: LEVOTHYROXINE SODIUM 0.05 MG TABLET PO SCH (05:33)
[2019-09-20] MEDS: HEPARIN SOD (PORCINE) 5,000 UNIT/ML 1 ML VIAL SUBCUT SCH ×3 (05:33→21:21)
[2019-09-20 07:01] LABS: ANION GAP 8 (5-19); BLOOD UREA NITROGEN 3 mg/dL (7-20); CALCIUM 8.2 mg/dL (8.4-10.2); CARBON DIOXIDE 26 mmol/L (22-30); CHLORIDE 107 mmol/L (98-107); GLUCOSE 82 mg/dL (75-110); POTASSIUM 3.6 mmol/L (3.6-5.0)
[2019-09-20] MEDS: VENLAFAXINE HCL 75 MG CAP.SR.24H PO SCH (10:49)
[2019-09-20] MEDS: CEFTRIAXONE 1 GM/D5W RTU 1 GM/50 ML RTUPB IV SCH (10:49)
[2019-09-20] MEDS: NORMAL SALINE 10 ML SDV (SCHEDULED) IV SCH ×2 (10:50→21:21)
[2019-09-20] MEDS: NORMAL SALINE 10 ML SDV (AFTER EACH USE) IV PRN (10:50)
[2019-09-20] MEDS ORDERED: ACETAMINOPHEN 325 MG TABLET PO PRN (15:52)
[2019-09-20] MEDS ORDERED: ONDANSETRON 4 MG TAB.RAPDIS PO PRN (15:53)
--- NOTE | 2019-09-20 16:32 | PDOC PROGRESS REPORT ---
Subjective Progress Note for:: 09/20/19 Subjective:: Patient feels well today. Has had 2 formed bowel movements in the past 24 hours and no diarrhea. Denies any nausea was able to tolerate diet. Reason For Visit: C. DIFFICILE COLITIS,UTI,HYPOKALEMIA Physical Exam Vital Signs: Temp Pulse Resp BP Pulse Ox 97.6 F 84 16 125/59 L 93 09/20/19 12:32 09/20/19 12:32 09/20/19 12:32 09/20/19 12:32 09/20/19 12:32 Intake & Output 09/19/19 09/20/19 09/21/19 06:59 06:59 06:59 Intake Total 550 990 118 Output Total 0 400 Balance 550 590 118 Weight 61.1 kg 61.8 kg General appearance: PRESENT: no acute distress, cooperative Respiratory exam: PRESENT: clear to auscultation parul GI/Abdominal exam: PRESENT: normal bowel sounds, soft. ABSENT: rebound, rigid, tenderness Neurological exam: PRESENT: alert, awake Results Laboratory Results: 09/19/19 09:00 09/20/19 06:35 09/20/19 06:35 Sodium 140.9 Potassium 3.6 Chloride 107 Carbon Dioxide 26 Anion Gap 8 BUN 3 L Creatinine 0.82 Est GFR ( Amer) > 60 Glucose 82 Calcium 8.2 L 09/13/19 11:40 Troponin I < 0.012 Impressions: Guidance Fluoroscopy 09/15/19 00:00 IMPRESSION: SUCCESSFUL PLACEMENT OF A 5 FR DUAL LUMEN 37 CM PICC IN THE LEFT BASILIC VEIN. Interventional Vascular Procedure 09/15/19 00:00 IMPRESSION: SUCCESSFUL PLACEMENT OF A 5 FR DUAL LUMEN 37 CM PICC IN THE LEFT BASILIC VEIN. PICC Line Insertion 09/15/19 00:00 IMPRESSION: SUCCESSFUL PLACEMENT OF A 5 FR DUAL LUMEN 37 CM PICC IN THE LEFT BASILIC VEIN. Abdomen/Pelvis CT 09/17/19 10:48 IMPRESSION: 1. Colitis, as previously seen. This involves much of the colon. No evidence of perforation or developing abscess. No bowel obstruction. 2. New small right pleural effusion. Assessment and Plan - Diagnosis (1) Bacteremia due to Staphylococcus Is this a current diagnosis for this admission?: Yes Plan: Staphylococcus mitis and hominis bacteremia noted on initial blood work Repeat blood cultures have been negative at completion Day 6 of antibiotic Continue ceftriaxone for now and switch to p.o. Levaquin to complete 10-day regimen (2) C. difficile colitis Is this a current diagnosis for this admission?: Yes Plan: Patient's diarrhea seems to have finally slowed down. Received IV Flagyl for about 4 to 5 days Continue p.o. Vanco day 7 to complete 10 days of oral vancomycin (3) Dehydration Is this a current diagnosis for this admission?: Yes Plan: Continue to encourage oral hydration (4) Hypokalemia Is this a current diagnosis for this admission?: Yes Plan: Secondary to diarrhea Currently resolved with supplementation with oral potassium - Time Time Spent with patient: Less than 15 minutes
[2019-09-20] MEDS ORDERED: PROMETHAZINE HCL 25 MG TABLET PO PRN (16:59)
[2019-09-20] MEDS ORDERED: POTASSIUM CHLORIDE 10 MEQ TABLET.ER PO ONE (17:30)
[2019-09-20] MEDS: AMOXICILLIN TR/POT CLAVULANATE 500-125 MG TAB PO SCH (21:20)
[2019-09-20] MEDS: ATORVASTATIN CALCIUM 40 MG TABLET PO SCH (21:21)
[2019-09-21] MEDS: HEPARIN SOD (PORCINE) 5,000 UNIT/ML 1 ML VIAL SUBCUT SCH (05:10)
[2019-09-21] MEDS: LEVOTHYROXINE SODIUM 0.05 MG TABLET PO SCH (05:11)
[2019-09-21] MEDS: AMOXICILLIN TR/POT CLAVULANATE 500-125 MG TAB PO SCH (05:11)
[2019-09-21] MEDS: PROMETHAZINE HCL INJ 25 MG/1 ML VIAL IV PRN (05:44)
[2019-09-21 06:09] LABS: HEMATOCRIT 26.8 % (36.0-47.0); HEMOGLOBIN 9.1 g/dL (12.0-15.5); MEAN CORPUSCULAR HEMOGLOBIN 30.5 pg (27.0-33.4); MEAN CORPUSCULAR VOLUME 90 fl (80-97); PLATELET COUNT 421 10^3/uL (150-450); RED BLOOD COUNT 2.98 10^6/uL (3.72-5.28); RED CELL DISTRIBUTION WIDTH 15.4 % (11.5-14.0); WHITE BLOOD COUNT 9.6 10^3/uL (4.0-10.5)
[2019-09-21 06:16] LABS: ANION GAP 10 (5-19); BLOOD UREA NITROGEN 5 mg/dL (7-20); CALCIUM 8.5 mg/dL (8.4-10.2); CARBON DIOXIDE 26 mmol/L (22-30); CHLORIDE 106 mmol/L (98-107); GLUCOSE 83 mg/dL (75-110); POTASSIUM 3.7 mmol/L (3.6-5.0)
[2019-09-21 06:32] LABS: ABSOLUTE LYMPHOCYTES# (MANUAL) 1.3 10^3/uL (0.5-4.7); ABSOLUTE MONOCYTES # (MANUAL) 0.6 10^3/uL (0.1-1.4); BAND NEUTROPHILS % (MANUAL) 2 % (3-5); BASOPHILS % (MANUAL) 0 % (0-2); EOSINOPHILS % (MANUAL) 1 % (0-6); LYMPHOCYTES % (MANUAL) 14 % (13-45); MONOCYTES % (MANUAL) 6 % (3-13); SEGMENTED NEUTROPHILS % (MAN) 77 % (42-78); TOTAL CELLS COUNTED 100
[2019-09-21 06:33] LABS: ANISOCYTOSIS SLIGHT; PLATELET COMMENT ADEQUATE; POLYCHROMASIA SLIGHT
[2019-09-21 08:35] VITALS: BP 125/69
--- NOTE | 2019-09-21 09:04 | PDOC TRANSFER SUMMARY ---
Impression - Admit/DC Date/PCP Admission Date/Primary Care Provider: 09/13/19 14:27 Discharge Date: 09/21/19 - Discharge Diagnosis (1) C. difficile colitis Is this a current diagnosis for this admission?: Yes (2) Bacteremia due to Staphylococcus Is this a current diagnosis for this admission?: Yes (3) Dehydration Is this a current diagnosis for this admission?: Yes (4) Hypokalemia Is this a current diagnosis for this admission?: Yes - Assessment Summary: Patient presented with profuse diarrhea nausea vomiting accompanied with abdominal pain. On presentation, patient had severe leukocytosis of 46 as well as profound hypokalemia and mild hyponatremia. Lactic acid was normal. Patient had a CT of the abdomen and pelvis with contrast which showed evidence of colitis involving the transverse colon and cecum. Patient was subsequently admitted with concern for infectious colitis. Patient's hyperkalemia was likely secondary to excessive GI losses from diarrhea for which patient was having over 10 bowel movements per day. Stool sample was obtained and revealed positive C. difficile toxin and PCR. Patient was treated for C. difficile colitis with vancomycin p.o. as well as IV Flagyl given the severity of her infection. She received IV Flagyl for a few days after which her diarrhea started to improve and then it was discontinued but was continued on vancomycin p.o. Patient received antiemetics and her nausea later resolved. Patient's abdominal pain has improved significantly and no longer requires IV pain medication for abdominal pain which is currently resolved. Patient's leukocytosis has also resolved with treatment and is now within normal limits. Patient is to continue vancomycin for treatment of her C. difficile colitis for 2 more days to complete a 10-day course of oral vancomycin. Patient's hypokalemia has also resolved with supplementation and has been normal for the past 3 days. Patient is on oral supplementation of 20 mEq/day potassium chloride. Of note during this admission, blood cultures were obtained initially which became positive for Staphylococcus mitis which is sensitive to most antibiotics. Patient has been placed on vancomycin IV initially and subsequently ceftriaxone for a few days and has now been transitioned to p.o. Augmentin which she is to complete for 4 more days to complete a 10-day course for treatment of Staphylococcus mitis/hominis bacteremia. Source is not very clear at this point especially as no oral lesions were noted. Of note, patient does have her own Phenergan which her son informed us that she takes IM for migraines. On admission, patient spironolactone/hydrochlorothiazide combination was held giving significant dehydration. Of note patient has been without this medication throughout her stay in the hospital and her blood pressures have been within normal limits averaging around 120s/70s. As such, we will continue to hold this medication after blood pressure starts to run high. - Additional Information Resuscitation Status: Full Code Discharge Diet: Regular Home Medications: Alprazolam [Xanax 0.25 mg Tablet] 0.25 mg PO Q8HP PRN 09/13/19 Aspirin [Aspirin 325 mg Tablet] 325 mg PO DAILY 09/13/19 Atorvastatin Calcium [Lipitor 40 mg Tablet] 40 mg PO QHS 09/13/19 Butalb/Acetaminophen/Caffeine [Fioricet (50-325-40 mg) Tablet] 1 tab PO Q6HP PRN 09/13/19 Butorphanol Tartrate 1 spray NS PRN PRN 09/13/19 Cholecalciferol (Vitamin D3) [Vitamin D3 1000 Unit Tablet] 1,000 unit PO DAILY 09/13/19 Gabapentin [Neurontin] 600 mg PO Q8 09/13/19 Levothyroxine Sodium [Synthroid 0.05 mg Tablet] 0.05 mg PO Q6AM 09/13/19 Meclizine HCl [Antivert 25 mg Tablet] 25 mg PO Q6HP PRN 09/13/19 Omeprazole/Sodium Bicarbonate [Omeprazole-Bicarb 40-1,100 Cap] 1 each PO DAILY 09/13/19 Topiramate [Topamax] 50 mg PO Q12 09/13/19 Venlafaxine HCl [Venlafaxine HCl ER] 150 mg PO DAILY 09/13/19 Vit A/Vit C/Vit E/Zinc/Copper [Preservision Areds Tablet] 2 each PO DAILY 09/13/19 Zolpidem Tartrate [Ambien] 5 mg PO HSP PRN 09/13/19 Acetaminophen [Tylenol 325 mg Tablet] 975 mg PO Q4HP PRN tablet 09/21/19 Amox Tr/Potassium Clavulanate [Augmentin "500" Tablet] 1 tab PO Q8 4 Days tablet 09/21/19 Potassium Chloride [Klor-Con 10 Meq Tablet ER] 20 meq PO DAILY tablet.er 09/21/19 Vancomycin HCl [Vancocin Inj 500 mg Vial] 500 mg PO Q6 2 Days vial 09/21/19 History of Present Illiness History of Present Illness: ALEXANDRIA DOWELL is a 74 year old female who approximately a month ago had a hip replacement. Patient was released from rehab last week and about 3 days ago developed severe nausea vomiting and diarrhea. Patient states no blood in the vomit or diarrhea nothing has made the symptoms better or worse and there is no other symptomology. CAT scan showed colitis she has a white count of 46,000. We are awaiting C. difficile toxin. Patient continues have right hip pain with weightbearing. No treatment prior arrival no aggravating factors Physical Exam Vital Signs: Temp Pulse Resp BP Pulse Ox 98.8 F 87 16 125/69 93 09/21/19 08:06 09/21/19 08:06 09/21/19 08:06 09/21/19 08:06 09/21/19 08:06 Intake & Output 09/20/19 09/21/19 09/22/19 06:59 06:59 06:59 Intake Total 990 518 Output Total 400 Balance 590 518 Weight 61.8 kg 57.1 kg General appearance: PRESENT: no acute distress, cooperative Neck exam: ABSENT: JVD Respiratory exam: PRESENT: clear to auscultation parul Cardiovascular exam: PRESENT: +S1, +S2 GI/Abdominal exam: PRESENT: normal bowel sounds, soft. ABSENT: distended, firm, guarding, rebound, rigid, tenderness Neurological exam: PRESENT: alert, awake Psychiatric exam: ABSENT: agitated Results Laboratory Results: WBC 9.6 10^3/uL (4.0-10.5) 09/21/19 05:55 RBC 2.98 10^6/uL (3.72-5.28) L 09/21/19 05:55 Hgb 9.1 g/dL (12.0-15.5) L 09/21/19 05:55 Hct 26.8 % (36.0-47.0) L 09/21/19 05:55 MCV 90 fl (80-97) 09/21/19 05:55 MCH 30.5 pg (27.0-33.4) 09/21/19 05:55 MCHC 34.0 g/dL (32.0-36.0) 09/21/19 05:55 RDW 15.4 % (11.5-14.0) H 09/21/19 05:55 Plt Count 421 10^3/uL (150-450) 09/21/19 05:55 Lymph % (Auto) Not Reportable 09/21/19 05:55 Young % (Auto) Not Reportable 09/21/19 05:55 Eos % (Auto) Not Reportable 09/21/19 05:55 Baso % (Auto) Not Reportable 09/21/19 05:55 Absolute Neuts (auto) Not Reportable 09/21/19 05:55 Absolute Lymphs (auto) Not Reportable 09/21/19 05:55 Absolute Monos (auto) Not Reportable 09/21/19 05:55 Absolute Eos (auto) Not Reportable 09/21/19 05:55 Absolute Basos (auto) Not Reportable 09/21/19 05:55 Total Counted 100 09/21/19 05:55 Seg Neutrophils % Not Reportable 09/21/19 05:55 Seg Neuts % (Manual) 77 % (42-78) 09/21/19 05:55 Band Neutrophils % 2 % (3-5) L 09/21/19 05:55 Lymphocytes % (Manual) 14 % (13-45) 09/21/19 05:55 Monocytes % (Manual) 6 % (3-13) 09/21/19 05:55 Eosinophils % (Manual) 1 % (0-6) 09/21/19 05:55 Basophils % (Manual) 0 % (0-2) 09/21/19 05:55 Abs Neuts (Manual) 7.6 10^3/uL (1.7-8.2) 09/21/19 05:55 Abs Lymphs (Manual) 1.3 10^3/uL (0.5-4.7) 09/21/19 05:55 Abs Monocytes (Manual) 0.6 10^3/uL (0.1-1.4) 09/21/19 05:55 Absolute Eos (Manual) 0.1 10^3/uL (0.0-0.6) 09/21/19 05:55 Abs Basophils (Manual) 0.0 10^3/uL (0.0-0.2) 09/21/19 05:55 Toxic Granulation SLIGHT 09/13/19 11:40 Clumped Platelets PRESENT 09/13/19 11:40 Platelet Comment ADEQUATE 09/21/19 05:55 Polychromasia SLIGHT 09/21/19 05:55 Anisocytosis SLIGHT 09/21/19 05:55 Ovalocytes SLIGHT 09/19/19 09:00 Schistocytes SLIGHT 09/19/19 09:00 VBG pH 7.42 (7.30-7.42) 09/13/19 13:08 VBG pCO2 39.6 mmHg (35-63) 09/13/19 13:08 VBG HCO3 24.9 mmol/L (20-32) 09/13/19 13:08 VBG Base Excess 0.4 mmol/L 09/13/19 13:08 Sodium 141.7 mmol/L (137-145) 09/21/19 05:10 Potassium 3.7 mmol/L (3.6-5.0) 09/21/19 05:10 Chloride 106 mmol/L (98-107) 09/21/19 05:10 Carbon Dioxide 26 mmol/L (22-30) 09/21/19 05:10 Anion Gap 10 (5-19) 09/21/19 05:10 BUN 5 mg/dL (7-20) L 09/21/19 05:10 Creatinine 0.70 mg/dL (0.52-1.25) 09/21/19 05:10 Est GFR ( Amer) > 60 (>60) 09/21/19 05:10 Est GFR (MDRD) Non-Af > 60 (>60) 09/21/19 05:10 Glucose 83 mg/dL (75-110) 09/21/19 05:10 POC Glucose 105 mg/dL (70-110) 09/13/19 12:43 Lactic Acid (Sepsis) 0.9 mmol/L (0.7-2.1) 09/13/19 18:44 Calcium 8.5 mg/dL (8.4-10.2) 09/21/19 05:10 Magnesium 1.6 mg/dL (1.6-2.3) 09/19/19 09:00 Total Bilirubin 0.5 mg/dL (0.2-1.3) 09/13/19 11:40 Direct Bilirubin 0.2 mg/dL (0.0-0.4) 09/13/19 11:40 Neonat Total Bilirubin Not Reportable 09/13/19 11:40 Neonat Direct Bilirubin Not Reportable 09/13/19 11:40 Neonat Indirect Bili Not Reportable 09/13/19 11:40 AST 20 U/L (14-36) 09/13/19 11:40 ALT 18 U/L (<35) 09/13/19 11:40 Alkaline Phosphatase 110 U/L (38-126) 09/13/19 11:40 Troponin I < 0.012 ng/mL 09/13/19 11:40 Total Protein 5.7 g/dL (6.3-8.2) L 09/13/19 11:40 Albumin 2.9 g/dL (3.5-5.0) L 09/13/19 11:40 Lipase < 10.0 U/L (23-300) L 09/13/19 11:40 Urine Color CARLOS 09/13/19 12:32 Urine Appearance SLIGHTLY-CLOUDY 09/13/19 12:32 Urine pH 5.0 (5.0-9.0) 09/13/19 12:32 Ur Specific [place] 1.020 09/13/19 12:32 Urine Protein 30 mg/dL (NEGATIVE) H 09/13/19 12:32 Urine Glucose (UA) NEGATIVE mg/dL (NEGATIVE) 09/13/19 12:32 Urine Ketones NEGATIVE mg/dL (NEGATIVE) 09/13/19 12:32 Urine Blood SMALL (NEGATIVE) H 09/13/19 12:32 Urine Nitrite POSITIVE (NEGATIVE) H 09/13/19 12:32 Urine Bilirubin NEGATIVE (NEGATIVE) 09/13/19 12:32 Urine Urobilinogen NEGATIVE mg/dL (<2.0) 09/13/19 12:32 Ur Leukocyte Esterase TRACE (NEGATIVE) H 09/13/19 12:32 Urine WBC (Auto) 5 /HPF 09/13/19 12:32 Urine RBC (Auto) 1 /HPF 09/13/19 12:32 Urine Bacteria (Auto) 3+ /HPF 09/13/19 12:32 Squamous Epi Cells Auto <1 /HPF 09/13/19 12:32 Urine Mucus (Auto) MOD /LPF 09/13/19 12:32 Urine Ascorbic Acid NEGATIVE (NEGATIVE) 09/13/19 12:32 Stl C. Difficile GDH Ag NEGATIVE (NEGATIVE) 09/13/19 19:55 Stl C.difficile Tox A&B POSITIVE (NEGATIVE) 09/13/19 19:55 Stl C.difficile Tox PCR POSITIVE (NEGATIVE) 09/13/19 19:55 Time Trough Drawn 0940 09/18/19 09:40 Vancomycin Trough 10.2 ug/mL (5.0-20.0) 09/18/19 09:40 Slides for Path Review PATHOLOGIST REVIEWED 09/13/19 11:40 09/13/19 11:40 Troponin I < 0.012 Impressions: Abdomen/Pelvis CT 09/13/19 12:05 IMPRESSION: 1. There is thickening of the cecum and proximal transverse colon (series 601, image 28, series 3, image 35), consistent with nonspecific infectious, inflammatory, or ischemic colitis. 2. Status post right nephrectomy. Guidance Fluoroscopy 09/15/19 00:00 IMPRESSION: SUCCESSFUL PLACEMENT OF A 5 FR DUAL LUMEN 37 CM PICC IN THE LEFT BASILIC VEIN. Interventional Vascular Procedure 09/15/19 00:00 IMPRESSION: SUCCESSFUL PLACEMENT OF A 5 FR DUAL LUMEN 37 CM PICC IN THE LEFT BASILIC VEIN. PICC Line Insertion 09/15/19 00:00 IMPRESSION: SUCCESSFUL PLACEMENT OF A 5 FR DUAL LUMEN 37 CM PICC IN THE LEFT BASILIC VEIN. Abdomen/Pelvis CT 09/17/19 10:48 IMPRESSION: 1. Colitis, as previously seen. This involves much of the colon. No evidence of perforation or developing abscess. No bowel obstruction. 2. New small right pleural effusion. Plan Plan of Treatment: (1) Bacteremia due to Staphylococcus Is this a current diagnosis for this admission?: Yes Plan: Staphylococcus mitis and hominis bacteremia noted on initial blood work Day 04/12 of antibiotics Augmentin for 4 days including today to complete 10-day regimen (2) C. difficile colitis Is this a current diagnosis for this admission?: Yes Plan: Patient's diarrhea seems to have finally slowed down. Received IV Flagyl for about 4 to 5 days Continue p.o. Vanco day 06/13 (3) Dehydration Is this a current diagnosis for this admission?: Yes Plan: Resolved. Continue to encourage oral hydration (4) Hypokalemia Is this a current diagnosis for this admission?: Yes Plan: Secondary to diarrhea Currently resolved with supplementation with oral potassium Time Spent: Greater than 30 Minutes Stroke Is this a Stroke Patient?: No Acute Heart Failure - Is this a Heart Failure Patient?: No
[2019-09-21] MEDS ORDERED: POTASSIUM CHLORIDE 10 MEQ TABLET.ER PO SCH (10:00)
[2019-09-21] MEDS ORDERED: VANCOMYCIN HCL INJ 500 MG VIAL PO SCH (12:00)
== END 2019-09-21 11:50 | DRG 372 ==
LOC: ER 11:33 → EH 14:27 → 3S 15:58
PROVIDERS: ADMIT Hospitalist; ATTEND Hospitalist
PROC: 02HV33Z Insertion of Infusion Device into Superior Vena Cava, Percutaneous Approach (ICD-10-PCS; principal; 2019-09-15)
PROC: B548ZZA Ultrasonography of Superior Vena Cava, Guidance (ICD-10-PCS; 2019-09-15)
PROC: B518ZZA Fluoroscopy of Superior Vena Cava, Guidance (ICD-10-PCS; 2019-09-15)
DX: A04.72 Enterocolitis due to Clostridium difficile, not specified as recurrent (principal); R78.81 Bacteremia; E87.1 Hypo-osmolality and hyponatremia; E86.0 Dehydration; I10 Essential (primary) hypertension; B95.7 Other staphylococcus as the cause of diseases classified elsewhere; K21.9 Gastro-esophageal reflux disease without esophagitis; G43.909 Migraine, unspecified, not intractable, without status migrainosus; Z82.49 Family history of ischemic heart disease and other diseases of the circulatory system; E87.6 Hypokalemia; E83.42 Hypomagnesemia; Z96.641 Presence of right artificial hip joint
CPT/HCPCS: 36415; 36569; 51701; 74176; 74177; 76937; 77001; 80048; 80053; 80202; 81001; 82803; 82962; 83605; 83690; 83735; 84484; 85025; 85027; 87040; 87077; 87150; 87186; 87324; 87449; 87493; 93005; 93010; 96361; 96374; 99285; J0131; J0696; J1170; J1642; J1644; J2405; J2550; J2765; J3370; J3475; J3480; J3490; J7030; J7060